=== PATIENT | male | born 1950 | race Caucasian/White ===

== ENCOUNTER → 2024-04-20 06:26 | Day surgery (SDC) | payer OTHER, MEDICARE, SELFPAY | LOC: GI 06:26 | PROVIDERS: ATTENDING PHYSICIAN Internal Medicine Gastroenterology | DX: Z12.11 Encounter for screening for malignant neoplasm of colon (principal); K57.30 Diverticulosis of large intestine without perforation or abscess without bleeding; K64.8 Other hemorrhoids | CPT/HCPCS: G0121 ==

== ENCOUNTER 2025-06-13 11:13 | Inpatient (IN) | payer OTHER, MEDICARE, SELFPAY ==
[2025-06-13] VITALS (68 sets, daily range): BP systolic 93–139; BP diastolic 51–91; BMI 25.2
--- NOTE | 2025-06-13 09:58 | CON.NEURO ---
Addendum entered and electronically signed by Ramírez Veloz MD 06/13/25 11:38:
Studies reviewed.
I have personally examined the patient. I reviewed and agree with the BREEDING MANAGER's Note.
My addenda:
Awake, alert, interactive. No acute distress.
Speech intact.
Follows 2-step requests w/o difficulty. No tremor.
Extra-ocular movements grossly intact.
Facial movements full and symmetric. Hearing intact to normal conversational volume.
Normal UE movements bilaterally.
Neck: full ROM.
Chest: no dyspnea
Heart: no JVD
Ext: (-) Clubbing, (-) Cyanosis, (-) Edema
IMPRESSIONS/RECOMMENDATIONS:
Abrupt onset of left upper extremity weakness and left sided facial weakness in addition to dysarthria are most likely secondary to acute ischemic right frontal stroke, this similar in location to the prior area of stroke
Provide tenecteplase
Goal of normotension after 24 hours, permissive hypertension prior to same
Goal of normoglycemia
Appreciate reevaluation by cardiology to determine if the patient's known patent foramen ovale should at this time be closed based on a likely second embolic event
Will check for aspirin efficacy by means of P2Y12 evaluation
D/W patient / nursing
All questions answered.
Total Critical Care Time= 40 minutes.
The neurological system is affected and the action required by me to prevent further deterioration or potential was control over the item listed first in the Impressions and Recommendations section of this note.
I was present and personally examined the patient. I discussed patient care with other professional health care providers.
Will continue to follow patient.
Original Note:
Documented by User: Pat Graves NP 06/13/25 11:15
Neuro Assessment/Plan
Assessment
Patient is a 74 yo male with a history of CVA (10/2023), HLD, PFO and hyperhomocysteinemia presenting to [facility] on 06/13/2025 with dysarthria, left facial weakness and left upper extremity weakness, numbness and tingling.
Head and neck CTA 10/21/2023: No significant vascular occlusion, aneurysm or dissection.
Brain MRI 10/21/2023: There is a small subtle focus of abnormal restricted diffusion involving the medial insular cortex, compatible with a small focus of acute to subacute infarction. Of note, although not an angiography examination, it appears
that there has likely been recanalization of the insular branch of the right MCA since earlier CT angiography of the head and neck.
TTE 10/21/2023:
Normal left ventricular size, wall thickness and systolic function.
LV ejection fraction is 55-60% by Donahue's method of discs.
Mildly enlarged right ventricular size.
Normal right ventricular systolic function.
Mildly dilated right atrium.
Mild mitral regurgitation.
Trace aortic regurgitation.
Trace tricuspid regurgitation.
Trace pulmonic regurgitation.
Normal pericardium without effusion.
Suboptimal subcostal view.
The IVC is mildly dilated.
No intracardiac thrombus noted
LESLIE 12/05/2023: PFO with right to left and left to right shunting.�
Linq monitor in November 2023.
Head and neck CTA 06/13/2025: Diminished branch vessels of the right middle cerebral artery in the region of the lateral right frontal lobe, which corresponds to the region of elevated Tmax on CT perfusion examination.
No significant calcification or narrowing involving the common carotid arteries, carotid bulbs, or proximal internal carotid arteries bilaterally. No significant narrowing involving the cervical or intracranial portions of the internal carotid
arteries.
No significant narrowing involving the M1 portions of the middle cerebral arteries bilaterally. Normal appearance of the anterior cerebral arteries.
No significant narrowing of the vertebral or basilar arteries. No significant narrowing of the posterior cerebral arteries.
Brain CT:
CBF <30% Volume: 0 mL (estimate of ischemic core)
Tmax >6 second Volume: 8 cc (critically hypoperfused tissue)
CBF/Tmax Mismatch Volume: 8 cc (ischemic penumbra)
CBF/Tmax Mismatch Ratio: Infinite
Hypoperfusion Index (Tmax >10s/Tmax >6s): 0 (predicts rate of collateral flow, infarct growth, and clinical outcome)
CBF <20% Volume: 0 cc (for patient's who arrived to the hospital within 60 minutes of symptom onset)
Perfusion findings suggest penumbra of involving the lateral right frontal lobe, and possibly the anterior and superior aspect of the right temporal lobe. By CT brain perfusion, there are no findings to suggest core infarction.
Labs: Cholesterol 101, LDL 44, Hgb A1C pending, Vitamin B12 pending
Brain MRI: pending
Plan
Abrupt change in speech, left facial strength and left upper extremity numbness/tingling and weakness due to onset of acute ischemic stroke
Most likely due to known PFO
Recommendations:
� administer IV Tenecteplase (TNK) per protocol urgently while keeping patient's blood pressure to a goal of systolic less than 185 and diastolic less than 110 mmHg during infusion of TNK
� place the patient in medical ICU
� goal blood pressure over the next 24 hours would be less than 180/105 mmHg
� check MRI of the brain within 22-32 hours of TNK without contrast for localization of the stroke
� check �CTA head and neck
� hold all antiplatelets, OAC meds, DOAC meds, heparinoids for next 24 hours
� check lipid panel and hemoglobin A1c
� hyperhomocysteinemia level 15.8, check vitamin B12 level
� continue atorvastatin when patient is able to take PO
� goal blood glucose levels for patient would be less than 180 mg/dL
� Speech, PT, OT evaluations needed
� Physiatry consultation warranted
� DVT prophylaxis with sequential compression devices over next 24 hours, can be started on Enoxaparin subcutaneous for DVT prophylaxis beginning 24 hours after TNK provision.
� medical educational materials will be provided
� cardiology consult due to known PFO on LESLIE
All questions encouraged and answered, plan of care discussed with Dr. Veloz, Dr. Palma, nurse and patient
Consultation
Order
Date of Consultation: 06/13/25
Requesting Provider: hospitalist
Reason for Consult: left facial droop, dysarthria and left upper extremity numbness/tingling and weakness
Subjective/Objective
Subjective Data
Date of Service: June 13, 2025
Taken from neurology outpatient note by Dr. Veloz on 04/28/2024,
'Since last visit:
>> 04/2024
completed blood work
cancer screening OK
Previous testing: blood work
CT head was negative.
CTA of the head and neck showed a focal cutoff of a distal right M2 insular branch with collaterals.
MRI brain showed a small subtle focus of an abnormal restricted diffusion in the medial insular cortex compatible with a small focus of acute to subacute infarct.
Echocardiogram -did not show PFO or CSE
LESLIE showed bidirectional PFO, did have aneurysmal changes
Linq implantable monitor
Prior medication(s): ASA, Clopidogrel, Atorvastatin
Side-effects with medications: none
Previous treatment(s): therapy evaluation, cardiac monitoring
Duration: since 10/2023
Duration of symptom: unchanged since onset
Etiology: unclear currently; presumed to be thromboembolic
Associated symptom(s): none
Improving factors: patient unaware of any
Worsening factors: patient unaware of any
Unchanged by: patient unaware of any
Severity: significant
~~~~
This is a 73-year-old male with no significant medical history that presented to the ER with speech changes and right sided facial droop on 10/21/2023. His reported when he woke up in the morning he was talking normally followed by immediate
garbled speech and was not responding correctly to her questions. She then noticed a right facial droop and his balance being off. He did fall. then brought him to the ER. Entire episode lasted approximately 10 minutes.
He was started on aspirin and Plavix for 21 days which he completed and now is on ASA daily. He was also started on a statin, LDL was 103.
He did follow-up with cardiology for 2-week cardiac monitoring which did not show any atrial fibrillation.
Since his discharge he has not had any new stroke symptoms. He has been feeling well. He is back working
>> 02/2024
had Linq implantable device placed
underwent LESLIE which showed PFO.'
Patient presenting to [facility] on 06/13/2025 as prehospital stroke alert. According to patient he went to bed at midnight woke up at 8am and noted left hand numbness/tingling and weakness. He also mentions that when he woke up to go to the bathroom he
fell down and denies LOC or head strike. He did take his low dose aspirin this morning. He has a Linq recorder in place and per patient no arrhythmias detected. He called his at 9:20 who noted dysarthria which prompted an ER evaluation. Arrived
to hospital at 10 am and taken to head CT. On exam noted to have left arm drift and ataxia, left facial droop and dysarthria. NIHSS 5. Head CT no acute abnormality. BP 136/80 HR 81, pulse ox 97% on room air. Brain perfusion scan concern for stroke.
Will be given TNK and admitted to ICU.
Objective Data
Patient Allergies
No Known Allergies Allergy (Verified 12/05/23 07:45)
LDL Level: <70, continue statin
CVA Assessment
Onset of Stroke Symptoms
Onset of symptoms known: No
Date of onset of symptoms: 06/13/25
Time of onset of symptoms: 08:00
Time pt last seen normal is known: Yes
Date last time pt seen normal: 06/13/25
Time last time pt seen normal: 00:00
NIH Stroke Score
Level of Consciousness: 0 - Alert
LOC Questions: 0-Answers both correctly
LOC Commands: 0-Performs both correctly
Best Horizontal Gaze: 0-Normal
Visual Beasley: 0=Normal, no visual loss
Facial Palsy: 2=Partial paralysis
Motor - Right Arm: 0=No drift 10 seconds
Motor - Left Arm: 1=Drift < 10 seconds
Motor - Right Le-No drift 5 seconds
Motor - Left Le-No drift 5 seconds
Limb Ataxia: 1-Present in one limb
Sensation: 0-Normal
Best Language: 0-No aphasia
Dysarthria: 1-Mild slurring
Extinction and Inattention: 0-No abnormality
NIH Total Score:: 5
Tenecteplase Contraindications
Inclusion and Exclusion criteria reviewed: Yes
Modified [place] Score (MRS)
-
Modified [place] Scale (mRS): Slight disability. Able to look after own affairs.
Score: 2
Physical Exam
-
General: No Apparent Distress, Comfortable and Appears Stated Age
HEENT: Normocephalic, Atraumatic and Anicteric
Neck: Full Range of Motion
Respiratory: No Dyspnea
Cardiac: No JVD
GI: Non-distended
Skin: Unremarkable
Extremities: No Clubbing, No Cyanosis and No Edema
Psych: Unremarkable
Extended Neurological Exam
Mood & Affect: Mood Unremarkable
Attention Span & Concentration: Awake, Alert, Interactive and No Difficulty with 2 Step Request
Memory: Unremarkable
Tremor: Hand Tremor Absent and Head Tremor Absent
Speech: Dysarthric
Cranial Nerve II: Left Eye: Visual Beasley Intact
Cranial Nerve II: Right Eye: Visual Beasley Intact
Cranial Nerves III, IV, : Extraocular Movement: Extraocular Movement Full in all Directions
Cranial Nerve VII: Facial Symmetry: Reduced (left)
Cranial Nerve VIII: Hearing: Unremarkable Hearing to Normal Conversational Volume
Muscle Strength, Overall: Reduced on Left (LUE)
Pronator Drift: Drift in Left Upper Extremity
Coordination: Other (LUE ataxia)
Data Reviewed
-
CT-A: Report Reviewed and Image Reviewed
CT-Perfusion: Report Reviewed and Image Reviewed
CT Head: Report Reviewed and Image Reviewed
MRI Head: Ordered
Echocardiogram: Report Reviewed
Labs: Report Reviewed
Lipid Profile: Ordered
HgbA1C: Ordered
Reviewed with: Physician and Patient
Old Records: Summarized
Medications
-
Home Medications
�Medication �Instructions �Recorded
aspirin 81 mg chewable tablet 81 mg PO DAILY #0 tabs 10/22/23
(Children's Aspirin)
atorvastatin 40 mg tablet 40 mg PO QPM #30 tabs 10/22/23

Documented by User: Ramírez Veloz MD 06/13/25 11:26
CVA Assessment
NIH Stroke Score
NIH Total Score:: 5
Modified [place] Score (MRS)
-
Score: 2
[2025-06-13] MEDS: TNKASE 4.2 MG IV (10:27)
[2025-06-13 10:29] LABS: Glucose - Point of Care 109 mg/dl (70-99)
--- NOTE | 2025-06-13 10:54 | HPS.HSE ---
Addendum entered and electronically signed by Michael Bentley MD 06/13/25 16:36:
ALSO: the blood pressure must be maintained at or below 180/105 mmHg for 24 hours following thrombolytic (Tenecteplase) treatment.
Original Note:
Family Physician
-
Family Physician: Mohit Conner DO
Chief Complaint
-
Numbness in left upper extremity
History of Present Illness
74-year-old male with previous history of CVA in 2022, hyperlipidemia, Linq monitor implant, and PFO, presented to the [facility] ER with slurred speech, left facial weakness and left upper extremity numbness and tingling. He noticed these symptoms after
waking up this morning. NIH score was 5, CT head initially negative. He was given TNK in the emergency room. He denied any other symptoms or complaints.
Medical History
Past Medical History
Past Medical History: Reports Other (As per HPI above)
Past Surgical History: Reports Orthopedic (R shoulder ORIF)
Social History
Tobacco: Non-smoker
Alcohol: None
Drug: None
Family History
Family History: Not pertinent
Allergies / Home Medications
Allergies reflects when Allergies were last updated in [facility].
Home Medications with original date entered in [facility]
Allergy/Medication List:
Allergies
Allergy/AdvReac Type Severity Reaction Status Date / Time
No Known Allergies Allergy Verified 12/05/23 07:45
Home Medications
aspirin 81 mg chewable tablet 81 mg PO DAILY Blood Clot Prevention/Tx 06/13/25
atorvastatin 40 mg tablet 40 mg PO QPM High Cholesterol 06/13/25
cyanocobalamin (vitamin B-12) 1,000 mcg tablet (Vitamin B-12) 1,000 mcg PO DAILY Supplement 06/13/25
Review of Systems
-
A 12 point ROS was completed and negative except as noted: Yes
Physical Exam
Vital Signs
Vital Signs
Temp Pulse Resp BP Pulse Ox
97.9 F 75 16 136/80 95
06/13/25 10:43 06/13/25 10:32 06/13/25 10:32 06/13/25 10:32 06/13/25 10:02
Physical Exam
General: No Apparent Distress
HEENT: NormoCephalic, Moist mucous membranes and Atraumatic
Respiratory: Clear
Cardiac: S1/S2 and Regular Rhythm
GI: Soft, Non Tender and Normal Bowel Sounds
Musculoskeletal: No Cyanosis and No Edema
Skin: Warm and Dry
Neuro: Awake, Alert and Other (Slight left facial droop. Otherwise, sensation grossly intact bilaterally except for LUE digits numbness/decreased sensation. Strength 5/5 bilaterally in the upper and lower extremities.)
Psych: Calm and Intact Judgment/Insight
Impression/Plan
-
Assessment/Plan
Concern for Acute Stroke
History of CVA
-Received TNK at 10:27 AM on 06/13/25
-Follow post-TNK administration protocol -- NO anticoagulant or antiplatelet agents within the first 24 hours of thrombolytic therapy
-Initial HCT negative but H&N noting diminished R MCA
-Repeat neuroimaging in the morning on 06/14/25 with MRI Brain
-Echo
-Cardiology will evaluate for PFO closure
-Neurochecks
Previous history of CVA in 2022
Linq monitor implant
-Per cardiology, Linq monitor was negative for arrhythmia/Afib
History of PFO
Hyperlipidemia
-Continue statin
DVT Prophylaxis: SCDs
Code Status: Full Code
Stroke with TNK administration is a high risk encounter.
[2025-06-13 11:00] LABS: Hematocrit 35.0 % (39.0-52.0); Hemoglobin 12.0 g/dL (13.0-18.0); Mean Corp Hgb Conc. 34.3 g/dL (33.0-37.0); Mean Corpuscular Volume 99.7 fL (80.0-94.0); Nucleated Red Blood Cells % 0 % (-); Platelet Count 186 10^3/uL (130-400); Red Cell Dist. Width 12.9 % (11.5-14.5)
[2025-06-13 11:08] LABS: Blood Urea Nitrogen 15 mg/dl (9-20); Calcium 8.7 mg/dl (8.4-10.2); Carbon Dioxide 25 mmol/L (22-30); Chloride 107 mmol/L (98-107); Glucose 107 mg/dl (70-99); HDL Cholesterol 47 mg/dl; LDL Cholesterol, Calculated 44 mg/dl; Potassium 5.1 mmol/L (3.5-5.1); Sodium 135 mmol/L (135-145); Very Low Density Lipoprotein 10 mg/dl (0-30); eGFR > 60.00
--- NOTE | 2025-06-13 11:23 | CON.INTV ---
Consultation
Consultation Request
Date/Time Consultation Requested: 06/13/25
Date/Time Consultation Performed: 06/13/25
Performing Provider: Mikaela
Reason for Consultation: CVA
Medical History
-
History of Present Illness:
Patient is a 74-year-old male with previous history of CVA in 2022, hyperlipidemia, PFO presenting to ER with dysarthria, left facial weakness and left upper extremity numbness and tingling. Onset was upon awakening this morning, had
noticed garbled speech, he was immediately brought to the ER by his . NIH score was 5, CT head initially negative. He is given TNK and admitted to ICU for post thrombolytic therapy.
Past Medical History
Past Medical History: Other (see list below)
Social History
Tobacco: Non-smoker
Alcohol: None
Drug: None
Family History
Family History: Reviewed & Not Pertinent
Allergies / Home Medications
Allergies
Allergy/AdvReac Type Severity Reaction Status Date / Time
No Known Allergies Allergy Verified 12/05/23 07:45
Home Medications
�Medication �Instructions �Recorded �Confirmed �Last Taken �Type
aspirin 81 mg chewable tablet 81 mg PO DAILY Blood Clot 06/13/25 06/13/25 06/13/25 History
Prevention/Tx
atorvastatin 40 mg tablet 40 mg PO QPM High Cholesterol 06/13/25 06/13/25 06/12/25 History
cyanocobalamin (vitamin B-12) 1,000 mcg PO DAILY Supplement 06/13/25 06/13/25 06/12/25 History
1,000 mcg tablet (Vitamin B-12)
Review of Systems
-
History Source: Patient
All other systems: Negative unless noted
Vitals / Labs / Diagnostic Testing
Vital Signs
Temp Pulse Resp BP Pulse Ox
97.9 F 69 15 130/64 95
06/13/25 10:43 06/13/25 11:02 06/13/25 11:02 06/13/25 11:02 06/13/25 10:02
Lab Data
06/13/25 10:36
06/13/25 10:36
Diagnostic Testing:
Physical Exam
-
HEENT: Normocephalic, Anicteric and Moist Mucous Membranes
Cardiovascular: S1/S2 and Regular Rhythm
Respiratory: Clear and Non-Labored Respirations
GI: Soft, Non Distended and Non Tender
Neurology: Awake, Alert, No Motor Deficits and Other (slight facial droop)
Skin: Warm, Dry and Good Color
General: Comfortable and Other (NAD)
Assessment
-
Patient is a 74-year-old male with previous history of CVA in 2022, hyperlipidemia, PFO presenting to ER with dysarthria, left facial weakness and left upper extremity numbness and tingling. Onset was upon awakening this morning, had
noticed garbled speech, he was immediately brought to the ER by his . NIH score was 5, CT head initially negative. He is given TNK and admitted to ICU for post thrombolytic therapy.
Acute CVA status post TNK 06/05/2025
Dysarthria
Left upper extremity numbness and paresthesias
Conditions present prior to admission
Prior CVA 2022
PFO status post loop recorder
Paroxysmal atrial fibrillation
CKD stage III
Mixed hyperlipidemia
Hyperhomocysteinemia
Thumb and arm fracture, pins placed
Gynecomastia
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
R shoulder dislocation with repair
Left wrist fracture
Right first phalanx fracture with malunion
Plan
s/p TNK for CVA -- this is second CVA
Observe overnight following administration, careful watch for signs of bleeding
Follow CBC, neurovascular checks
Repeat MRI in AM
Initial HCT negative but H&N noting diminished R MCA
Prior cardiac history includes PFO being followed by cards
ECHO in past stable, loop recorder in place
PAF history, not on OAC
Cards evaluation for PFO closure
No prior h/o lung disease, stable on RA
Aspiration precautions
CXR reviewed in past-normal, no new imaging
Restart diet per protocol
Speech eval for diet
GI ppx if indicated
Creat at baseline, follow UO
No signs/symptoms suspicious for infectious etiology at this time.��
Will observe off antibiotics for now.
PT/OT
DVT ppx held, SCDs
Diagnostic Data
Chest X-Ray: 01/29/22- No radiographic evidence of acute cardiopulmonary abnormality.
CT Scan: H&N 06/13/25- Diminished branch vessels of the right middle cerebral artery in the region of the lateral right frontal lobe, which corresponds to the region of elevated Tmax on CT perfusion examination. No significant calcification or
narrowing involving the common carotid arteries, carotid bulbs, or proximal internal carotid arteries bilaterally. No significant narrowing involving the cervical or intracranial portions of the internal carotid arteries.
No significant narrowing involving the M1 portions of the middle cerebral arteries bilaterally. Normal appearance of the anterior cerebral arteries. No significant narrowing of the vertebral or basilar arteries. No significant narrowing of the
posterior cerebral arteries. Percent stenosis is calculated using NASCET criteria.
Echo: 10/21/23- Normal left ventricular size, wall thickness and systolic function. LV ejection fraction is 55-60% by Donahue's method of discs. Mildly enlarged right ventricular size. Normal right ventricular systolic function. Mildly dilated right
atrium. Mild mitral regurgitation. Trace aortic regurgitation. Trace tricuspid regurgitation. Trace pulmonic regurgitation. Normal pericardium without effusion. Suboptimal subcostal view. The IVC is mildly dilated. No intracardiac thrombus noted
PFT's:
Reports and relevant images were personally reviewed.
Critical Care time 50 mins -- The patient is admitted for acute critical illness for the treatment of vital organ failure and/or prevention of further life-threatening conditions. Total care includes time spent in review of history, physical exam,
medications, hemodynamic/ventilator parameters, laboratory data, imaging and discussion with house staff, pharmacy, respiratory therapy, conference coordinator, and nursing.
--- NOTE | 2025-06-13 11:25 | ED.CVA ---
History of Present Illness
General
Chief Complaint: CVA/TIA Symptoms
Source: patient
Exam Limitations: none
Time Seen by Provider: 06/13/25 09:59
Onset of Stroke Symptoms
Onset of symptoms known: Yes
Date of onset of symptoms: 06/13/25
Time of onset of symptoms: 08:00
History of Present Illness
History of Present Illness:
74-year-old male acute onset slurred speech left facial droop left arm weakness. May have started upon awakening but more than likely started just after awakening. Possibly around 8 AM. Symptoms have been stable throughout the morning. No
headache. Previous history of CVA. Takes an aspirin. No other anticoagulation.
Past History
Past History
ED Past Medical History: CVA (right MCA ) and Other (PFO)
ED Past Surgical History: Orthopedic (R shoulder ORIF)
Social History
Tobacco: Non-smoker
Alcohol: None
Personal:
Living: with family
Family History
Family History: Other (reviewed and non-contributory)
Review of Systems
Review of Systems
All Other Systems: Not applicable
Constitutional: Denies fever
Respiratory: Reports no symptoms
Cardiac: Reports no symptoms
Phy Exam
Physical Exam
Physical Exam:
GENERAL: Alert and oriented in no apparent distress
EYE: Orbits normal.
CARDIAC: Regular rate and rhythm
Lungs: No respiratory distress from sorry
NEUROLOGICAL: Alert and oriented , mild left facial droop. Minimal left arm drift and poor [id number] on the left. Slight slurred speech. Eye confrontation normal. Right side normal. Legs normal. Light touch intact.
SKIN: Warm and dry, no rash or lesion, no discoloration, skin intact.
MUSCULOSKELETAL: No edema,no deformity.Good color
PSYCH: Normal and appropriate interaction.
Scores
NIH Stroke Score
Level of Consciousness: 0 - Alert
LOC Questions: 0-Answers both correctly
LOC Commands: 0-Performs both correctly
Best Horizontal Gaze: 0-Normal
Visual Beasley: 0=Normal, no visual loss
Facial Palsy: 2=Partial paralysis
Motor - Right Arm: 0=No drift 10 seconds
Motor - Left Arm: 1=Drift < 10 seconds
Motor - Right Le-No drift 5 seconds
Motor - Left Le-No drift 5 seconds
Limb Ataxia: 1-Present in one limb
Sensation: 0-Normal
Best Language: 0-No aphasia
Dysarthria: 1-Mild slurring
Extinction and Inattention: 0-No abnormality
NIH Total Score:: 5
Course
Orders/Labs/Results
Orders:
Orders
06/13/25 09:59
CT HEAD STROKE ALERT W/o Cont Urgent
Comment:
Reason For Exam: r/o CVA
CT HEAD/NECK ANG STROKE ALERT Urgent
Comment:
Reason For Exam: Left-sided weakness/slurred speech
Cardiac Monitoring- Treatment ONCE
IV Insert/Care/Rem.- Treatment PRN
Pulse Ox/cont/shift [RESP] Stat
Quantity: 1
06/13/25 10:00
Electrocardiogram (*1) Stat
Reason for Study: Other
Other Reason for Exam: neuro symptoms
CT Brain Perfusion Urgent
Comment:
Reason For Exam: Left-sided weakness /slurred speech
EKG- Treatment ONCE
06/13/25 10:19
Tenecteplase [Tnkase] 21 mg Syringe [Syringe Non-Pump] 0 ml IV NOW
Provider explained risk/benefits to patient &/or caregiver?: Yes
Blood pressure: 139/84
06/13/25 10:27
Add On- LAB Routine
Tests Added?: lipid panel, hgb A1C
06/13/25 10:36
Basic Metabolic Panel Urgent
Cardiovascular Evaluation Urgent
Comment: ADD
Complete Blood Count/With Diff Urgent
Glycohemoglobin (HgbA1c) Urgent
Magnesium Urgent
Comment: ADD
Phosphorus Urgent
Comment: ADD
Vitamin B12 Urgent
Comment: ADD ON
06/13/25 10:38
Add On- LAB Routine
Tests Added?: B12
06/13/25 10:45
Electrocardiogram (*1) Routine
Reason for Study: TIA/Stroke
Code Status As Directed
Resuscitation Status: Full Code
Case Management Consult Once
Case Management Consult: Discharge Planning
DIETARY IP CONSULT Routine
Reason for Consult: stroke/TIA
Wirer Passenger Car Consult Routine
Consulting Provider: Kell Al
Was physician already notified: Yes
NEUROLOGY CONSULT Urgent
Consulting Provider: Ramírez Veloz
Was physician already notified: Yes
Technical Applications Scientist Urgent
MR Brain Without Contrast Routine
Comment: complete 24 hrs post tenecteplase administration
Reason For Exam: possible stroke, status post tenecteplase
Recent pill cam endoscopy?: No
Acetaminophen [Tylenol] 650 mg PO Q4HPRN PRN
Hemetest Stools As Directed
Comment: hemoccult all stools if patient received tenecteplase
NIH Stroke Scale As Directed
Directions: Other
Comment: NIH stroke Scale to be completed prior to thrombolytic administration, then every 1 hour for 2
hours, then every shift and with change in condition and/or mental status.
Neurological Checks As Directed
Frequency: Per unit guidelines
Additional Instructions:: after start of thrombolytic therapy:
q15min x 2 hrs, q30min x 6 hrs, q1h x 16 hrs, q4h x 24 hrs, then every shift and
with any changes.
Notify MD As Directed
Notify physician if: - Any deterioration, change in neurological status, development of severe headache,
nausea and vomiting, or with any signs of bleeding. (see guidelines for suspected
intracerebral hemorrhage).
- If intracranial hemorrhage is suspected or confirmed by imaging, anticipate need for
osmotic diuretic to maintain euvolemia.
Notify MD As Directed
Notify physician if: Glucose less than 70 or greater than 180.
Anticipate corrective insulin orders.
Notify MD As Directed
Notify physician if: unable to obtain MRI of head within 22-32 hours of tenecteplase administration
- contact Neurology for order for CT of head without contrast
Patient Education As Directed
Type: Stroke education packet
Comment: provide to patient and family
Pneumatic Compression Sleeves As Directed
Type: Knee high
Precautions As Directed
Type of Precautions: Bleeding
Comment: post Bleeding Precaution sign at bedside (if patient received tenecteplase)
Swallow Screening CVA/TIA ONLY As Directed
Comment: NPO until swallow screening completed
If patient FAILS swallow screening:: NPO and Speech consult and aspiration precautions
If patient PASSES swallow screening, diet:: Cholesterol Lowering
Above diet order entered?: Yes- passed screening
Thrombolytic Precautions As Directed
Thrombolytic Precautions:: [place] bleeding precautions. Minimize invasive procedures and venipunctures,
avoid IM injections and over-handling patient, and check all puncture sites for
bleeding. Assess the patient and notify provider for signs and symptoms of
internal or serious bleeding, such as changes in vital signs or evidence of blood
in the urine or stool.
Additional instructions: Hemocult all stools.
Apply direct pressure or pressure dressing to any compressible puncture sites.
No ABG sampling or [place] insertion after Tenecteplase administration for 24 hours,
unless directed by the Neurologist/Attending.
Vital Signs As Directed
Frequency: q15m
Call for:: BP greater than 180/105 mmHg or less than 100/60 mmHg
Additional Instructions:: after start of thrombolytic therapy:
q15min x 2 hrs, q30min x 6 hrs, q1h x 16 hrs, q4h x 24 hrs, then every shift and
with any changes.
CR Chest - 2 Views Urgent
Comment:
Reason For Exam: stroke/TIA
Ot Eval And Treat Routine
Physiatry Consult Routine
Consulting Provider: Thanh Torres
Was physician already notified: Yes
Reason for consult: stroke/TIA
Pt Eval And Treat Routine
Activity Level: As Tolerated
Speech Therapy Eval & Treat Routine
DX Deep Vein Thrombosis Video Routine
06/13/25 10:49
Admit Patient As Directed
Co-Sign Provider:
Level of Care: Inpatient admission
Assign to:: ICU
Physician / Group: Dr. Michael Bentley/Hospitalists
Diagnosis: Stroke s/p TNK
Reason for Hospitalization: Stroke s/p TNK
Expected length of stay greater than two midnights?: Yes
ELOS- Estimated Length of Stay in days: 3
I certify the patient meets the requirements for IP care: Yes
06/13/25 10:50
VerifyNow Aspirin Routine
Pt on daily regimen OR been given initial dose of aspirin?: Yes
06/14/25 06:00
Basic Metabolic Panel IN AM
Cardiovascular Evaluation IN AM
Complete Blood Count/No Diff IN AM
PTT IN AM
Prothrombin Time IN AM
Abnormal Lab Results
06/13/25 06/13/25
10:25 10:36
RBC 3.51 L 10^6/uL
(4.70-6.10)
Hgb 12.0 L g/dL
(13.0-18.0)
Hct 35.0 L %
(39.0-52.0)
MCV 99.7 H fL
(80.0-94.0)
MCH 34.2 H pg
(27.0-31.0)
Lymphocytes % 20.3 L %
(20.5-51.1)
Glucose 107 H mg/dl
(70-99)
Hemoglobin A1c 5.9 H %
(4.0-5.6)
Vitamin B12 964 H pg/ml
(239-931)
POC Glucose 109 H mg/dl
(70-99)
06/13/25 10:36
06/13/25 10:36
Vital Signs
Initial and Last Documented VS:
Initial Vital Signs
Pulse Resp BP Pulse Ox
82 16 139/84 95
06/13/25 10:02 06/13/25 10:02 06/13/25 10:02 06/13/25 10:02
Last Documented Vital Signs
Temp Pulse Resp BP Pulse Ox
97.8 F 61 19 125/69 95
06/13/25 11:39 06/13/25 12:32 06/13/25 12:32 06/13/25 12:32 06/13/25 12:30
MDM/Problems Addressed
Differential Diagnosis Includes:
Given the ongoing penumbra moderate symptoms patient was recommended thrombolytics by neurology. I agree. Risk-benefit explained to the patient into the .
*Radiology
Radiology exam reviewed: radiology read reviewed (Penumbra right frontal lobe. No M1 clot.)
*Pulse Oximetry
SaO2: 95
Oxygen Mode of Delivery: Room air
Patient hypoxic: no
*Critical Care Note
Total Time (30-74mins, 75-104mins- exclusive of procedures): 35
ED Attending Note
-
Portions of this chart may have been created with voice recognition software.� Occasional wrong word or��sound alike� substitutions may have occurred due to the inherent limitations of voice recognition software.
Discharge Plan
Departure
Patient Disposition: Admit
Date of Disposition: 06/13/25
Time of Disposition: 11:01
Presentation/result/management discussed w/ accepting MD/DO: Neurology
Discharge Problem:
Acute CVA
Interventions
Interventions:
*Risk Screen - Suicide Last Done: 06/13/25 10:08
*Neglect/Abuse Screening Last Done: 06/13/25 10:08
*ED- Fall Risk Assessment Last Done: 06/13/25 10:08
*ED COVID-19 Vaccine History Last Done: 06/13/25 10:58
*Nursing Disposition Last Done: 06/13/25 11:05
ED- Pulmonary Assessment Last Done: 06/13/25 10:07
ED- Neurological Assessment Last Done: 06/13/25 10:12
ED- Cardiac Assessment Last Done: 06/13/25 10:42
ED Swallowing Screen Last Done: 06/13/25 10:41
Discharge Date and Time
Discharge Date/Time: 06/13/25 11:30
--- NOTE | 2025-06-13 11:30 | PTCARENOTE ---
Received pt from ER into ICU rm [id number] s/p TNK. NIH completed w FLAME CHANNELER; scored for mild L facial droop and L hand 'tingling'- see flow sheet. L facial droop improved and L hand sensation improved; resolved slurred speech and L arm weakness per FLAME CHANNELER
from initial NIH assessment. Pt. AAOx3, forgetful/impulsive @ x's; bed alarm active. Denies pain. SB/SR on monitor. SpO2 96% on RA. +BS, NPO pending swallow screen. Cont b/b. Pt. reported mechanical fall @ home in which he fell on L side;
hematomas noted on L FA and L knee. B/L AC IVs patent, dressings c/d/i. Bedrest maintained post TNK. Pt. intructed on how to report care concerns. @ bedside, updated.
[2025-06-13 11:46] LABS: VerifyNow Aspirin 572 ARU
--- NOTE | 2025-06-13 12:16 | CON.CAR ---
Addendum entered and electronically signed by Marc Rhodes DO 06/13/25 16:07:
I saw and examined the patient.
The Battery Stacker's note was reviewed and I agree with the note.
Comment:
Plan:
-Presented with slurred speech and L sided weakness. Admitted as prehospital stroke alert. CT brain perfusion scan concerning for acute CVA and is s/p tNK.
-He has known hx of PFO and LINQ. Cardiology was consulted for eval for candidacy for PFO closure.
LINQ was negative for arrhythmia/Afib
Discussed that he does not meet current guideline criteria for PFO closure and his ROPE score is on the lower side. Nonetheless, we discussed evaluation by interventional cardiology structural team, Dr De La Torre for eval for potential for PFO closure.
Appt has been made.
Check echo
Cont neuro work up and eval. MRI pending.
Defer consideration for hypercoagulable work up and anticoagulation to neurology.
Cont ASA and Lipitor. LDL at goal.
Discussed with his at bedside.
Original Note:
Consultation
Consultation Request
Date/Time Consultation Requested: 06/13/2025
Date/Time Consultation Performed: 06/13/2025
Requesting Provider: Dr. Veloz
Performing Provider: Magy Little PA-C for Dr. Rhodes
Reason for Consultation: CVA h/o PFO
Medical History
-
History of Present Illness:
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 He presented to [facility] ER for evaluation of slurred speech and L sided weakness. He called his who noted slurred speech. Also had fall while walking to
the bathroom due to L sided weakness. States given concern for CVA he came to ER for evaluation as prehospital CVA alert. Taken urgently to CT scan where brain perfusion scan was concerning for stroke. He was evaluated by neurology and given TNK.
Symptoms improving, but not yet back to baseline. Still has some tingling of L arm/hand. Given known PFO and recurrent CVA, cardiology consulted for evaluation. He notes he has been in his usual state of health recently and has been compliant with
his aspirin and lipitor. No chest pain, palpitations, dizziness, lightheadedness, or LE edema. No recent travel. Linq monitor by recent OP checks has been without arrhythmia, most recently 05/28/2025.
PMH:
CVA 10/2023
s/p Linq monitor 12/05/2023
PFO by LESLIE 11/2023
HLD
Past Medical History
Past Medical History: Other (In HPI)
Past Surgical History: Cardiac (Linq monitor implant 11/2023) and Orthopedic
Social History
Tobacco: Non-Smoker
Alcohol: None
Drug: None
Personal:
Living: With Family
Family History
Family History: Reviewed & Not Pertinent
Allergies / Home Medications
Allergy/AdvReac Type Severity Reaction Status Date / Time
No Known Allergies Allergy Verified 12/05/23 07:45
�Medication �Instructions �Recorded �Confirmed �Type
aspirin 81 mg chewable tablet 81 mg PO DAILY Blood Clot 06/13/25 06/13/25 History
Prevention/Tx
atorvastatin 40 mg tablet 40 mg PO QPM High Cholesterol 06/13/25 06/13/25 History
cyanocobalamin (vitamin B-12) 1,000 mcg PO DAILY Supplement 06/13/25 06/13/25 History
1,000 mcg tablet (Vitamin B-12)
Review of Systems
-
History Source: Patient and Family ( at bedside)
All other systems: Negative unless noted
Physical Exam
Vital Signs
Temp Pulse Resp BP Pulse Ox
97.8 F 62 17 117/73 95
06/13/25 11:39 06/13/25 12:02 06/13/25 12:02 06/13/25 12:02 06/13/25 11:25
Lab Results
06/13/25 10:36
06/13/25 10:36
Physical Exam
General: Well Developed, Well Nourished and No Apparent Distress
HEENT: Normocephalic, Anicteric and Moist Mucous Membranes
Respiratory: Clear and Non Labored Respirations
Cardiac: S1/S2 and Regular Rhythm
Musculoskeletal: No Clubbing, No Cyanosis and No Edema
Skin: Warm and Dry
Neuro: AO x 3
Psych: Calm
Impression / Plan
-
PCP: Dr. Conner
Wool Hanker: Dr. Michael
Impression:
Presented with dysarthria, L sided weakness
Acute CVA s/p TNK 06/13/2025
h/o CVA 10/2023
s/p Linq monitor 12/05/2023
PFO by LESLIE 11/2023
HLD
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
Echo 06/13/2025: Study pending
Plan:
-Presented with slurred speech and L sided weakness. Admitted as prehospital stroke alert. CT brain perfusion scan concerning for acute CVA and is s/p TNK.
-Brain MRI pending. Neurology following.
-Aspirin 81mg daily on hold following TNK.
-BP stable. Not on antihypertensive medications.
-Has been compliant w/ aspirin, lipitor as OP. LDL 44.
-Hgb A1c 5.9%.
-EKG reviewed, SR with no acute changes noted.
-Linq monitor in place. No arrhythmia noted by recent OP check 05/28. Device rep texted to check today to assess for afib given recurrent CVA.
-Check TTE.
-He has known h/o PFO by prior LESLIE 11/2023. As age > 60, data limited in benefit of PFO closure.
-Follow up visit arranged w/ interventional cardiology, Dr. De La Torre, to discuss risk/benefit of PFO closure given age 74 w/ recurrent CVA.
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 He presented to [facility] ER for evaluation of slurred speech and L sided weakness. He called his who noted slurred speech. Also had fall while walking to
the bathroom due to L sided weakness. States given concern for CVA he came to ER for evaluation as prehospital CVA alert. Taken urgently to CT scan where brain perfusion scan was concerning for stroke. He was evaluated by neurology and given TNK.
Symptoms improving, but not yet back to baseline. Still has some tingling of L arm/hand. Given known PFO and recurrent CVA, cardiology consulted for evaluation. He notes he has been in his usual state of health recently and has been compliant with
his aspirin and lipitor. No chest pain, palpitations, dizziness, lightheadedness, or LE edema. No recent travel. Linq monitor by recent OP checks has been without arrhythmia, most recently 05/28/2025.
Data Reviewed
-
EKG: Tracing Personally Visualized and interpreted
CT Scan: Report Reviewed by me
Labs: Labs Reviewed by me
Old Records: Reviewed
[2025-06-13 12:19] LABS: Glucose - Point of Care 105 mg/dl (70-99)
[2025-06-13 12:33] LABS: Vitamin B12 964 pg/ml (239-931)
[2025-06-13 12:39] LABS: Glycohemoglobin (HgbA1c) 5.9 % (4.0-5.6)
[2025-06-13 12:44] LABS: APTT 24.7 Sec (23.4-35.0); INR 0.90; PT 12.6 Sec (11.4-14.6)
--- NOTE | 2025-06-13 12:45 | CM ---
Initial assessment completed with patient and who live in a 2 story house with basement , B/B on 1st floor, 3 steps to enter. 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 There are crutches in the home. No in-home services. No HC-POA.
[facility]P is [facility] and Pharmacy is [facility] [phone] in [place]. Discharge POC: Anticipate home with no needs.
[2025-06-13 13:13] LABS: Hematocrit 38.0 % (39.0-52.0); Hemoglobin 13.1 g/dL (13.0-18.0); Mean Corp Hgb Conc. 34.5 g/dL (33.0-37.0); Mean Corpuscular Volume 100.3 fL (80.0-94.0); Platelet Count 188 10^3/uL (130-400); Red Cell Dist. Width 13.2 % (11.5-14.5)
--- NOTE | 2025-06-13 13:25 | PTCARENOTE ---
Pt.'s L FA hematoma noted to be larger; circled w marker. Insulation Board Coater Operator, Ernesto Al, made aware. Further orders received for CBC, drawn and sent to lab; awaiting results. Ice/compression applied. Call [facility] remains w in reach.
[2025-06-13 13:27] LABS: Magnesium 1.9 mg/dl (1.6-2.3)
--- NOTE | 2025-06-13 14:44 | W.CARD.DEVCH ---
Cardiac Device Check
-
Device: Implanted Loop Recorder (ILR)
Grab Setter: [employer]
The patient's device was interrogated with assistance of the device truck sales representative followed by a complete physician review. The device had normal function. No events. No atrial fibrillation.
--- NOTE | 2025-06-13 15:45 | PTOTSP ---
Speech Therapy Evaluation:
Speech, language, and oropharyngeal swallow appear functional at bedside. Cannot r/o silent aspiration given concern for acute CVA, however CXR showed 'clear lungs,' WBC WNL, pt afebrile, on room air, and passed 3oz swallow screen.
Recommend:
1. Continue regular solids and thin liquids
2. Meds as tolerated
3. Aspiration precautions
4. CHILDREN TEACHER to follow pending results of MRI
--- NOTE | 2025-06-13 16:00 | PTCARENOTE ---
ECHO study completed @ beside this afternoon; results pending. Pt. remains w mild L facial droop but reports continuing improvement in 'tingling' sensation in hand; reports is now 'tingling' is in 4th and 5th fingers. Neuro assessments completed
per orders- see flow sheet. Hgb results w in stable range; no growth in L FA hematoma. remains @ bedside. Bed alarm active; call [place] w in reach.
--- NOTE | 2025-06-13 20:33 | PTCARENOTE ---
Pt received at 19:00, handoff NIH completed. Ox3, NIH = 2, slight L facial droop and decreased sensation to 4th and 5th fingers on L hand. Pt states improvement in sensation, but 'still not 100%'. SR HR 60s-70s, bradys into the 50s when asleep. RA
breath sounds clear t/o . +bowel sounds, no BM. Voids in urinal, clear yellow urine. Brusing noted to L FA and L knee from prior fall--bruises marked and unchanged. Safe environment maintained, call [facility] within reach.
[2025-06-14] VITALS (61 sets, daily range): BP systolic 60–137; BP diastolic 41–95; PULSE 53–73
--- NOTE | 2025-06-14 | PTCARENOTE ---
Pt assessment unchanged. States that he feels the decreased sensation continues to improve in his L 4th and 5th fingers. Safe environment maintained, call [facility] within reach.
[2025-06-14] MEDS: NSS 500 IV (04:21)
[2025-06-14 04:27] LABS: Hematocrit 35.5 % (39.0-52.0); Hemoglobin 12.4 g/dL (13.0-18.0); Mean Corp Hgb Conc. 34.9 g/dL (33.0-37.0); Mean Corpuscular Volume 97.5 fL (80.0-94.0); Platelet Count 148 10^3/uL (130-400); Red Cell Dist. Width 13.1 % (11.5-14.5)
[2025-06-14 04:40] LABS: INR 0.99; PT 13.6 Sec (11.4-14.6)
[2025-06-14 04:41] LABS: APTT 25.0 Sec (23.4-35.0)
--- NOTE | 2025-06-14 04:45 | PTCARENOTE ---
While drawing pts AM labs, pt stated that he was starting to get dizzy and nauseated. BP 60/42, HR in the 40s. GTA made aware, ordered 500ml NSS bolus. NIH completed, remains 2. Pt stated that he had an episode of 'passing out' when getting labs
drawn outpatient in the past. With improvement in BP, dizziness/nausea resolved. BP now 103/63.
[2025-06-14 04:49] LABS: Blood Urea Nitrogen 15 mg/dl (9-20); Calcium 8.9 mg/dl (8.4-10.2); Carbon Dioxide 24 mmol/L (22-30); Chloride 109 mmol/L (98-107); Estimated Creatinine Clearance 70 ml/min; Glucose 98 mg/dl (70-99); HDL Cholesterol 50 mg/dl; LDL Cholesterol, Calculated 55 mg/dl; Magnesium 2.1 mg/dl (1.6-2.3); Potassium 4.9 mmol/L (3.5-5.1); Sodium 136 mmol/L (135-145); Very Low Density Lipoprotein 12 mg/dl (0-30); eGFR > 60.00
[2025-06-14] MEDS: NSS 1000 IV (05:55)
--- NOTE | 2025-06-14 07:07 | W.PN.INTV ---
Today's Communication / Plan
Recommendations
Stable on RA, no new complaints
MRI planning today, neuro following
Follow up cards planning for PFO evaluation, can be done as OP
PT/OT, speech following
Can transfer to floors today, we will sign off upon transfer
Assessment
-
Patient is a 74-year-old male with previous history of CVA in 2022, hyperlipidemia, PFO presenting to ER with dysarthria, left facial weakness and left upper extremity numbness and tingling. Onset was upon awakening this morning, had
noticed garbled speech, he was immediately brought to the ER by his . NIH score was 5, CT head initially negative. He is given TNK and admitted to ICU for post thrombolytic therapy.
Acute CVA status post TNK 06/05/2025
Dysarthria
Left upper extremity numbness and paresthesias
Conditions present prior to admission
Prior CVA 2022
PFO status post loop recorder
Paroxysmal atrial fibrillation
CKD stage III
Mixed hyperlipidemia
Hyperhomocysteinemia
Thumb and arm fracture, pins placed
Gynecomastia
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
R shoulder dislocation with repair
Left wrist fracture
Right first phalanx fracture with malunion
Plan
s/p TNK for CVA -- this is second CVA
Observe overnight following administration, careful watch for signs of bleeding
Follow CBC, neurovascular checks
Repeat MRI in AM, scheduled for 11AM
Initial HCT negative but H&N noting diminished R MCA
Prior cardiac history includes PFO being followed by cards
ECHO in past stable, loop recorder in place
PAF history, not on OAC
Cards evaluation for PFO closure
This can be further discussion as OP
No prior h/o lung disease, stable on RA
Aspiration precautions
CXR reviewed in past-normal, no new imaging
Denies snoring, does not feel he has TANGELA complaints
Restart diet per protocol--tolerating
Speech eval for diet
GI ppx if indicated
Creat at baseline, follow UO
No signs/symptoms suspicious for infectious etiology at this time.��
Will observe off antibiotics for now.
PT/OT
DVT ppx held, SCDs
Diagnostic Data
Chest X-Ray: 01/29/22- No radiographic evidence of acute cardiopulmonary abnormality.
CT Scan: H&N 06/13/25- Diminished branch vessels of the right middle cerebral artery in the region of the lateral right frontal lobe, which corresponds to the region of elevated Tmax on CT perfusion examination. No significant calcification or
narrowing involving the common carotid arteries, carotid bulbs, or proximal internal carotid arteries bilaterally. No significant narrowing involving the cervical or intracranial portions of the internal carotid arteries.
No significant narrowing involving the M1 portions of the middle cerebral arteries bilaterally. Normal appearance of the anterior cerebral arteries. No significant narrowing of the vertebral or basilar arteries. No significant narrowing of the
posterior cerebral arteries. Percent stenosis is calculated using NASCET criteria.
Echo: 10/21/23- Normal left ventricular size, wall thickness and systolic function. LV ejection fraction is 55-60% by Donahue's method of discs. Mildly enlarged right ventricular size. Normal right ventricular systolic function. Mildly dilated right
atrium. Mild mitral regurgitation. Trace aortic regurgitation. Trace tricuspid regurgitation. Trace pulmonic regurgitation. Normal pericardium without effusion. Suboptimal subcostal view. The IVC is mildly dilated. No intracardiac thrombus noted
PFT's:
Reports and relevant images were personally reviewed.
Critical Care time 35 mins -- The patient is admitted for acute critical illness for the treatment of vital organ failure and/or prevention of further life-threatening conditions. Total care includes time spent in review of history, physical exam,
medications, hemodynamic/ventilator parameters, laboratory data, imaging and discussion with house staff, pharmacy, respiratory therapy, music department chair, and nursing.
Subjective Dataa
Subjective Data
Date of Service:
Date of Service: June 14, 2025
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
Subjective:
Doing well, no new complaints
Stable on RA
Objective Data
Data Reviewed
Vital Signs / I&O / Oxygen:
Vital Signs
Temp Pulse Resp BP Pulse Ox
97.9 F 60 18 118/66 94
06/14/25 03:18 06/14/25 06:32 06/14/25 06:32 06/14/25 06:32 06/14/25 06:30
Intake and Output
06/13/25 06/14/25 06/15/25
06:59 06:59 06:59
Intake Total 860 / 860
Output Total 1900 / 1900
Balance -1040 / -1040
SaO2 94
Physical Exam
General: Comfortable, Good Appetite and Other (NAD)
HEENT: Normocephalic, Anicteric and Moist Mucous Membranes
Cardiovascular: S1-S2 and Regular Rhythm
Respiratory: Clear and Non-Labored Respirations
GI: Soft, Non Distended and Non Tender
Neurology: Awake, Alert, Oriented and No Motor Deficits
Skin: Warm, Dry and Good Color
Labs/Micro/Reports
Lab Data
06/14/25 04:17
06/14/25 04:17
Laboratory Results
06/13/25 06/14/25
12:14 04:17
PT 12.6 13.6
INR 0.90 0.99
APTT 24.7 25.0
--- NOTE | 2025-06-14 08:08 | W.PN.CARDCBS ---
Today's Communication / Plan
-
Medical management for now per neuro, optimization of antiplatelet regimen, blood pressure cholesterol
We will arrange for outpatient follow-up with Dr. De La Torre for evaluation of PFO closure
Will sign off, please call if questions
Impression / Plan
-
PCP: Dr. Conner
Test Clerk: Dr. Michael
Impression:
Presented with dysarthria, L sided weakness
Acute CVA s/p TNK 06/13/2025
h/o CVA 10/2023
s/p Linq monitor 12/05/2023
PFO by LESLIE 11/2023
HLD
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
Echo 06/13/2025: Study pending
Plan:
He seems to be making a good recovery from his right hemispheric stroke.
His RoPE score is 4, suggesting a 38% chance that PFO with paradoxical embolism is the underlying etiology for his stroke. Age greater than 74 noted.
For now, continue to optimize blood pressure, cholesterol, antiplatelet agents per neuro (clopidogrel)
We will arrange for outpatient follow-up with Dr. De La Torre for consideration of PFO closure.
We will sign off. Please call if questions.
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 He presented to [facility] ER for evaluation of slurred speech and L sided weakness. He called his who noted slurred speech. Also had fall while walking to
the bathroom due to L sided weakness. States given concern for CVA he came to ER for evaluation as prehospital CVA alert. Taken urgently to CT scan where brain perfusion scan was concerning for stroke. He was evaluated by neurology and given TNK.
Symptoms improving, but not yet back to baseline. Still has some tingling of L arm/hand. Given known PFO and recurrent CVA, cardiology consulted for evaluation. He notes he has been in his usual state of health recently and has been compliant with
his aspirin and lipitor. No chest pain, palpitations, dizziness, lightheadedness, or LE edema. No recent travel. Linq monitor by recent OP checks has been without arrhythmia, most recently 05/28/2025.
Progress Note - Test Clerk
Subjective
Date of Service: June 14, 2025:
74-year-old man with known PFO, LINQ implant admitted with dysarthria and left-sided weakness/paresthesias consistent with a right hemispheric CVA and received TNK. Asked to evaluate regarding PFO closure
PMH: CVA November 2023, known PFO, LINQ, hyperlipidemia
Current medications: None, outpatient meds atorvastatin and aspirin
102/65, pulse 63, respiratory rate 18, sats 94%, head neck exam unremarkable, no obvious focal neuro defects lungs clear, regular rate and rhythm
Chest x-ray NAD
Hemoglobin 12.4, BUN/creatinine 15 and 1.0, potassium 4.9, LDL is 55
Echo EF 55-60%, mildly dilated RV, mildly dilated right atrium hypermobile atrial septum, trace MR, no AI, normal pulmonary artery systolic pressure
Plan:
Overall he appears to be doing well.
If CT findings consistent with cortical infarct on imaging, rope score would be 4 with 30% chance that stroke is related to PFO. Will arrange for follow-up with Dr. De La Torre as outpatient to determine whether PFO closure is warranted. Will sign off,
please call if questions.
Objective
Labs:
06/14/25 04:17
06/14/25 04:17
Labs
Hgb 12.4 g/dL (13.0-18.0) L 06/14/25 04:17
Hct 35.5 % (39.0-52.0) L 06/14/25 04:17
Plt Count 148 10^3/uL (130-400) D 06/14/25 04:17
PT 13.6 Sec (11.4-14.6) 06/14/25 04:17
INR 0.99 06/14/25 04:17
APTT 25.0 Sec (23.4-35.0) 06/14/25 04:17
Sodium 136 mmol/L (135-145) 06/14/25 04:17
Potassium 4.9 mmol/L (3.5-5.1) 06/14/25 04:17
BUN 15 mg/dl (9-20) 06/14/25 04:17
Creatinine 1.0 mg/dL (0.7-1.3) 06/14/25 04:17
Glucose 98 mg/dl (70-99) 06/14/25 04:17
Vital Signs and I&O:
Vital Signs
Temp Pulse Resp BP Pulse Ox
36.6 C 63 18 102/65 94
06/14/25 03:18 06/14/25 07:32 06/14/25 07:32 06/14/25 07:32 06/14/25 06:30
Vital Signs
Temp Pulse Resp BP Pulse Ox
36.6 C 63 18 102/65 94
06/14/25 03:18 06/14/25 07:32 06/14/25 07:32 06/14/25 07:32 06/14/25 06:30
Intake & Output
06/12/25 06/13/25 06/14/25 06/15/25
07:59 07:59 07:59 07:59
Intake Total 860 / 860
Output Total 1900 / 1900
Balance -1040 / -1040
Physical Exam
Physical Exam
See above
--- NOTE | 2025-06-14 08:21 | W.PN.NEURO.1 ---
Addendum entered and electronically signed by Ramírez Veloz MD 06/14/25 09:48:
Studies reviewed.
I have personally examined the patient. I reviewed and agree with the ELECTRONICS TECHNICIAN APPRENTICE's Note.
My addenda:
Awake, alert, interactive. No acute distress.
Speech intact.
Follows 2-step requests w/o difficulty. No tremor.
Extra-ocular movements grossly intact.
Facial movements full and symmetric. Hearing intact to normal conversational volume.
Normal UE movements bilaterally.
Neck: full ROM.
Chest: no dyspnea
Heart: no JVD
Ext: (-) Clubbing, (-) Cyanosis, (-) Edema
IMPRESSIONS/RECOMMENDATIONS:
Abrupt onset of left facial weakness, left upper extremity weakness and abnormal CT perfusion suggesting right frontal acute ischemic stroke recurrently. Testing now indicates that the patient is not a responder to aspirin. Possible etiologies for
his issue has been hyper homocystinemia and presence of patent foramen ovale with hyperlipidemia.
Replace aspirin with clopidogrel, for lifelong use
Check P2Y12 testing on clopidogrel after loading dose has been provided.
Patient needs cancer screening to ensure this is not an etiology for recurrent stroke
Would repeat hypercoagulable evaluation and patient should have an outpatient evaluation with subspecialist in the field of stroke to ensure adequate treatment of hyperhomocystinemia
Reduce B12 dosing from 3 tablets to 2 tablets daily as the patient has a top normal level
Rehabilitation evaluations and treatment
Appreciate cardiology evaluation for potential PFO closure despite patient being outside the age expected to have benefit
D/W patient
All questions answered.
Will continue to follow as outpatient.
Original Note:
Today's Communication / Plan
-
Recommendations:
� goal normotension after 24 hours
� check MRI of the brain within 22-32 hours of TNK without contrast for localization of the stroke
� continue B12 supplementation
� continue atorvastatin
� goal blood glucose levels for patient would be less than 180 mg/dL
� testing indicates he is not an aspirin responder, give loading dose of clopidogrel 24 hours after TNK and check P2Y12 test to ensure he is a responder, if he is can start Clopidogrel 75 mg daily
� needs hypercoagulable workup outpatient at 6 weeks
Neuro Assessment/Plan
Assessment
Patient is a 74 yo male with a history of CVA (10/2023), HLD, PFO and hyperhomocysteinemia presenting to [facility] on 06/13/2025 with dysarthria, left facial weakness and left upper extremity weakness, numbness and tingling.
Head and neck CTA 10/21/2023: No significant vascular occlusion, aneurysm or dissection.
Brain MRI 10/21/2023: There is a small subtle focus of abnormal restricted diffusion involving the medial insular cortex, compatible with a small focus of acute to subacute infarction. Of note, although not an angiography examination, it appears
that there has likely been recanalization of the insular branch of the right MCA since earlier CT angiography of the head and neck.
TTE 10/21/2023:
Normal left ventricular size, wall thickness and systolic function.
LV ejection fraction is 55-60% by Donahue's method of discs.
Mildly enlarged right ventricular size.
Normal right ventricular systolic function.
Mildly dilated right atrium.
Mild mitral regurgitation.
Trace aortic regurgitation.
Trace tricuspid regurgitation.
Trace pulmonic regurgitation.
Normal pericardium without effusion.
Suboptimal subcostal view.
The IVC is mildly dilated.
No intracardiac thrombus noted
LESLIE 12/05/2023: PFO with right to left and left to right shunting.�
Linq monitor in November 2023.
Head and neck CTA 06/13/2025: Diminished branch vessels of the right middle cerebral artery in the region of the lateral right frontal lobe, which corresponds to the region of elevated Tmax on CT perfusion examination.
No significant calcification or narrowing involving the common carotid arteries, carotid bulbs, or proximal internal carotid arteries bilaterally. No significant narrowing involving the cervical or intracranial portions of the internal carotid
arteries.
No significant narrowing involving the M1 portions of the middle cerebral arteries bilaterally. Normal appearance of the anterior cerebral arteries.
No significant narrowing of the vertebral or basilar arteries. No significant narrowing of the posterior cerebral arteries.
Brain CT:
CBF <30% Volume: 0 mL (estimate of ischemic core)
Tmax >6 second Volume: 8 cc (critically hypoperfused tissue)
CBF/Tmax Mismatch Volume: 8 cc (ischemic penumbra)
CBF/Tmax Mismatch Ratio: Infinite
Hypoperfusion Index (Tmax >10s/Tmax >6s): 0 (predicts rate of collateral flow, infarct growth, and clinical outcome)
CBF <20% Volume: 0 cc (for patient's who arrived to the hospital within 60 minutes of symptom onset)
Perfusion findings suggest penumbra of involving the lateral right frontal lobe, and possibly the anterior and superior aspect of the right temporal lobe. By CT brain perfusion, there are no findings to suggest core infarction.
Labs: Cholesterol 101, LDL 44, Hgb A1C 5.9, Vitamin B12 964, ARU 572(not a responder)
Brain MRI: pending
Plan
Abrupt change in speech, left facial strength and left upper extremity numbness/tingling and weakness due to onset of acute ischemic stroke
Most likely due to known PFO
Recommendations:
� goal normotension after 24 hours
� check MRI of the brain within 22-32 hours of TNK without contrast for localization of the stroke
� continue B12 supplementation
� continue atorvastatin
� goal blood glucose levels for patient would be less than 180 mg/dL
� testing indicates he is not an aspirin responder, give loading dose of clopidogrel 24 hours after TNK and check P2Y12 test to ensure he is a responder, if he is can start Clopidogrel 75 mg daily
� needs hypercoagulable workup outpatient at 6 weeks
All questions encouraged and answered, plan of care discussed with Dr. Veloz, hospitalist and patient
Subjective/Objective
Subjective Data
Date of Service: June 14, 2025
Patient became hypotensive and dizzy early this morning around 0413 while getting labs drawn, given 500cc bolus of NSS. Currently BP stable. Left arm 'back to normal.' Continues with mild left facial weakness.
Objective Data
Vital Signs
Temp Pulse Resp BP Pulse Ox
97.9 F 63 18 102/65 94
06/14/25 03:18 06/14/25 07:32 06/14/25 07:32 06/14/25 07:32 06/14/25 06:30
Lab Results
06/14/25 04:17
06/14/25 04:17
PT 13.6 Sec (11.4-14.6) 06/14/25 04:17
INR 0.99 06/14/25 04:17
APTT 25.0 Sec (23.4-35.0) 06/14/25 04:17
Sodium 136 mmol/L (135-145) 06/14/25 04:17
Potassium 4.9 mmol/L (3.5-5.1) 06/14/25 04:17
BUN 15 mg/dl (9-20) 06/14/25 04:17
Glucose 98 mg/dl (70-99) 06/14/25 04:17
Calcium 8.9 mg/dl (8.4-10.2) 06/14/25 04:17
Phosphorus 2.3 mg/dl (2.5-4.5) L 06/13/25 10:36
LDL Cholesterol, Calc 55 mg/dl 06/14/25 04:17
Vitamin B12 964 pg/ml (239-931) H 06/13/25 10:36
Patient Allergies
No Known Allergies Allergy (Verified 12/05/23 07:45)
Physical Exam
-
General: No Apparent Distress, Comfortable and Appears Stated Age
HEENT: Normocephalic, Atraumatic and Anicteric
Neck: Full Range of Motion
Respiratory: No Dyspnea
Cardiac: No JVD
GI: Non-distended
Skin: Unremarkable
Extremities: No Clubbing, No Cyanosis and No Edema
Psych: Unremarkable
Extended Neurological Exam
Mood & Affect: Mood Unremarkable
Attention Span & Concentration: Awake, Alert, Interactive and No Difficulty with 2 Step Request
Memory: Unremarkable
Tremor: Hand Tremor Absent and Head Tremor Absent
Speech: Quality Unremarkable, Quantity Unremarkable and Rate of Production Unremarkable
Cranial Nerve II: Left Eye: Visual Beasley Intact
Cranial Nerve II: Right Eye: Visual Beasley Intact
Cranial Nerves III, IV, : Extraocular Movement: Extraocular Movement Full in all Directions
Cranial Nerve VII: Facial Symmetry: Reduced (left)
Cranial Nerve VIII: Hearing: Unremarkable Hearing to Normal Conversational Volume
Muscle Strength, Overall: Full Throughout
Pronator Drift: No Drift in Upper Extremities and No Drift in Lower Extremities
Coordination: [id number] Testing Unremarkable and Reaches for Objects without Difficulty
--- NOTE | 2025-06-14 08:30 | PTCARENOTE ---
Received pt @ change of shift. NIH=1- see flow sheet. Pt. reports resolved 'tingling' in 4th/5th fingers; remains w mild L facial droop. SB/SR on monitor. SpO2 96% on RA. +BS, abd soft/nt; tolerating meals. Cont b/b. Remains bedrest d/t TNK
admin yesterday. Plan for MRI today. Neuro checks completed per orders. Call [place] remains w in reach.
--- NOTE | 2025-06-14 13:22 | PTCARENOTE ---
pt. transported down to MRI @ 1100 via wheelchair s/p stoke thrombolytic therapy flow sheet completed. No issues during transport and pt. back to rm [id number]. Further orders received for tele s/p imaging and pt.'s cardiac monitoring switched to tele
pack. PT currently working w patient. remains @ bedside.
[2025-06-14] MEDS: PLAVIX 300 MG PO (13:28)
--- NOTE | 2025-06-14 15:16 | CM ---
RA. MRI today showed few scattered tiny nonhemorrhagic acute/subacute high right parietal lobe infarcts. Discharge POC: Home with no needs. Therapy notes no skilled therapy needs.
--- NOTE | 2025-06-14 15:30 | W.PN.HOSP.TC ---
Today's Communication/Plan
-
Discharge today
Assessment / Plan
Assessment / Plan
Physical Exam
General: No Apparent Distress
HEENT: NormoCephalic, Moist mucous membranes and Atraumatic
Respiratory: Clear
Cardiac: S1/S2 and Regular Rhythm
GI: Soft, Non Tender and Normal Bowel Sounds
Musculoskeletal: No Cyanosis and No Edema
Skin: Warm and Dry
Neuro: Awake, Alert and Oriented x3. Cranial Nerves 2 through 12 grossly intact bilaterally. Sensation grossly intact bilaterally. Strength 5/5 bilaterally in the upper and lower extremities.
Psych: Calm and Intact Judgment/Insight
Assessment/Plan
Concern for Acute Stroke
History of CVA
-Received TNK at 10:27 AM on 06/13/25
-Initial HCT negative but H&N noting diminished R MCA
-Repeat neuroimaging with MRI Brain showed few scattered tiny nonhemorrhagic acute/subacute high right parietal lobe infarcts
-Since Aspirin nonresponder, switch to Plavix 75 mg daily -- I communicated today with neurologist Dr. Veloz and he said okay for discharge on Plavix 75 mg daily
-Check P2Y12 testing as per neurology
-Patient needs cancer screening to ensure this is not an etiology for recurrent stroke
-Needs outpatient repeat hypercoagulable evaluation and patient should have an outpatient evaluation with subspecialist in the field of stroke to ensure adequate treatment of hyperhomocystinemia
-Reduce B12 dosing from 3 tablets to 2 tablets daily given current Vitamin B12 level
-Cardiology: outpatient follow-up with Dr. De La Torre for consideration of PFO closure
Previous history of CVA in 2022
Linq monitor implant
-Per cardiology, Linq monitor was negative for arrhythmia/Afib
History of PFO
Hyperlipidemia
-Continue statin
DVT Prophylaxis: SCDs
Code Status: Full Code
More than 30 minutes spent in discharge including
Final examination of the patient
Summarizing hospital stay
Instructions for continuing care to all relevant caregivers
Preparation of discharge records, prescriptions, and referral forms
Total time spent (in minutes): 37
Anticipated Discharge: Today
Subjective/Interval History
-
Date of Service: June 14, 2025
Patient was seen and examined. He reported that his neurologic symptoms had resolved. He denied any other new, significant symptoms or complaints.
Objective Data
-
Labs:
Laboratory Results
06/14/25
04:17
WBC 8.4
Hgb 12.4 L
Hct 35.5 L
Plt Count 148 D
PT 13.6
INR 0.99
APTT 25.0
Sodium 136
Potassium 4.9
Chloride 109 H
Carbon Dioxide 24
BUN 15
Creatinine 1.0
Glucose 98
Calcium 8.9
Vital Signs:
Vital Signs
Temp Pulse Resp BP Pulse Ox
97.5 F 63 21 121/70 93
06/14/25 12:04 06/14/25 13:15 06/14/25 13:15 06/14/25 13:13 06/14/25 10:15
I&O
06/13/25 06/14/25 06/15/25
06:59 06:59 06:59
Intake Total 860 / 860
Output Total 1900 / 1900
Balance -1040 / -1040
--- NOTE | 2025-06-14 16:05 | CON.MR ---
Addendum entered and electronically signed by Thanh Torres MD 06/14/25 22:37:
Clarification. Patient seen on 06/14/2025.
Original Note:
Documented by User: Veronique Chance MD, Resident 06/14/25 18:45
Consultation
Consultation Request
Date/Time Consultation Requested: 06/13/25 1:30 pm
Requesting Provider: Michael Bentley
Performing Provider: Dr. Torres
Reason for Consultation: CVA with moderate symptoms
Medical History
-
Chief Complaint: Acute CVA
History of Present Illness:
Mr. Pastor Ozuna is a 74-year-old male with a PMH notable for CVA (2022), homocystinuria, paroxysmal afib, PFO (with loop recorder), CKD stage 3, and HLD, who is presenting with slurred speech, left facial droop, left arm weakness (acute onset ~ 8
AM 06/13/25). Fell and hit left forearm and left knee. Not sure if he hit his head. No headache. Symptoms have decreased since admission. History of CVA in 2022. Takes aspirin. No other anticoagulation.
Past Medical History
Past Medical History: CVA (Right MCA 10/2023) and Other (PFO, homocystinuria)
Past Surgical History: Orthopedic (R shoulder ORIF)
Family History
Family History: Early CAD (Father had a CT and bypass surgery at 54yo) and Cancer (Mother had metastatic breast cancer)
Social History
Functional Level Premorbidity:
Independent for all activities.
Current Funct Level: Ambulation, Transfer, UE/LE Dressing:
Ambulated 300 ft, transferred, dressed UE/LE independently without assistive device.
Tobacco: Non-Smoker
Alcohol: None
Drug: None
Personal:
Living: With Family
Is 24 hour care available: No
Number of Floors: 3
# Steps to Enter: 3
# Steps to Second Floor: 12
Potential First Floor Set Up: Yes
Driving: Yes
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
Allergies / Home Medications
Allergy/AdvReac Type Severity Reaction Status Date / Time
No Known Allergies Allergy Verified 12/05/23 07:45
�Medication �Instructions �Recorded �Confirmed �Last Taken �Type
aspirin 81 mg chewable tablet 81 mg PO DAILY Blood Clot 06/13/25 06/13/25 06/13/25 History
Prevention/Tx
atorvastatin 40 mg tablet 40 mg PO QPM High Cholesterol 06/13/25 06/13/25 06/12/25 History
cyanocobalamin (vitamin B-12) 1,000 mcg PO DAILY Supplement 06/13/25 06/13/25 06/12/25 History
1,000 mcg tablet (Vitamin B-12)
Review Of Systems
-
History Source: Patient
Constitutional: Reports No Symptoms
Eye: Reports No Symptoms
Respiratory: Reports No Symptoms
Cardiac: Reports No Symptoms
Neurological: Reports No Symptoms
Physical Exam
Active Medications
Generic Name Dose Route Start Last Admin
Trade Name Freq PRN Reason Stop Dose Admin
Acetaminophen 650 mg 06/13/25 10:45
Acetaminophen 325 Mg Tablet PO 07/11/25 10:44
Q4HPRN PRN
DENNEY, mild pain, or temp >100.4F
Vital Signs
Temp Pulse Resp BP Pulse Ox
97.8 F 67 16 114/67 95
06/13/25 11:39 06/13/25 14:02 06/13/25 14:02 06/13/25 14:02 06/13/25 13:30
Height 5 ft 11 in
Actual Weight 81.8 kg
Body Mass Index (BMI) 25.2
Physical Exam
Physical Exam:
General Appearance/Observation: Well-developed, well-nourished individual in no apparent distress.
Pain/Comfort Assessment: Denies
Mood/Affect: Appropriate
Integumentary/Operative Site:
Pressure Ulcer: absent
Other Type of Wound: absent
Eyes: Conjunctiva/Lids: normal Pupils: pupils equal round and reactive to light and Accommodation
Ears/Nose/Throat: oral mucosa moist, throat clear. Lips/Teeth/Gums: normal
Neck: No muscle spasm or tenderness
Cardiovascular: Heart: regular, no murmur
Pulses: dorsalis pedis 2+ bilaterally
Respiratory: Respiratory Effort/Chest Expansion: normal Auscultation: Clear to auscultation bilaterally
Gastrointestinal: abdomen not tender, no distension, normal abdominal bowel sounds
Genitourinary: No Villela
Rectal Exam: Deferred
Extremities: Edema: None Cyanosis: None Trophic changes: None
Neurology Exam:
Orientation: Alert, Oriented to self, Time, Place
Memory: Intact immediately and at 3 minutes
Higher cortical function
Speech: Intact
Repetition: Intact
Comprehension: Intact
Two step command: Intact
Naming: Intact
Cranial Nerves:
CNII: Pupillary light reflex: Intact Visual Field: Intact
CN III, IV, : Extraocular muscles: Intact
CN V: Facial Sensation at Forehead: Intact , Maxilla: Intact, Mandible: Intact
CN VII: Facial movement: Symmetric full smile, eyebrow raise, eyebrow furrow, and blowing out cheeks. Slightly asymmetric half smile, but could be the patient's baseline.
CN VIII: Hearing: Normal
CN IX/X: Speech & swallow: Normal, Position of Uvula: Midline
CN XI: Shoulder shrug: Symmetric
CN XII: Tongue protrusion: Midline
Sensory:
Light touch: Intact in bilateral upper and lower extremities
Proprioception: Intact
Reflexes:
Triceps: 2+ right. Deferred testing left side due to tenderness/ecchymosis
Achilles: 2+ bilaterally
Babinski: Downgoing bilaterally
Clonus: None
Ho: Negative bilaterally
Cerebellar: Dysmetria/Ataxia: None
Musculoskeletal:
Motor: (Manual muscle scale 0-5)
Muscle SA EF WE EE FF FA HF KE DF EHL PF
Right 5 5 5 5 5 5 5 5 5 5 5
Left 5 5 5 5 5 5 5 5 5 5 5
Tone: Normal in all extremities
Range of Motion: Passively within normal limits in all extremities
Lab Results
06/13/25 13:05
06/13/25 10:36
WBC 8.6 10^3/uL (4.8-10.8) 06/13/25 13:05
Hgb 13.1 g/dL (13.0-18.0) 06/13/25 13:05
Hct 38.0 % (39.0-52.0) L 06/13/25 13:05
MCV 100.3 fL (80.0-94.0) H 06/13/25 13:05
Plt Count 188 10^3/uL (130-400) 06/13/25 13:05
PT 12.6 Sec (11.4-14.6) 06/13/25 12:14
INR 0.90 06/13/25 12:14
Sodium 135 mmol/L (135-145) 06/13/25 10:36
Potassium 5.1 mmol/L (3.5-5.1) 06/13/25 10:36
Chloride 107 mmol/L (98-107) 06/13/25 10:36
Carbon Dioxide 25 mmol/L (22-30) 06/13/25 10:36
BUN 15 mg/dl (9-20) 06/13/25 10:36
Creatinine 1.1 mg/dL (0.7-1.3) 06/13/25 10:36
eGFR > 60.00 06/13/25 10:36
Glucose 107 mg/dl (70-99) H 06/13/25 10:36
Hemoglobin A1c 5.9 % (4.0-5.6) H 06/13/25 10:36
Calcium 8.7 mg/dl (8.4-10.2) 06/13/25 10:36
Phosphorus 2.3 mg/dl (2.5-4.5) L 06/13/25 10:36
Magnesium 1.9 mg/dl (1.6-2.3) 06/13/25 10:36
Diagnostic Results
As per HPI.
CT Head 06/13/25: No evidence of acute intracranial abnormality.
CTA Head/Neck 06/13/25: Diminished branch vessels of the right middle cerebral artery in the region of the lateral right frontal lobe, which corresponds to the region of elevated Tmax on CT perfusion examination.
CT Brain Perfusion 06/13/25: Perfusion findings suggest penumbra of involving the lateral right frontal lobe, and possibly the anterior and superior aspect of the right temporal lobe. By CT brain perfusion, there are no findings to suggest core
infarction.
EKG 06/13/25: NORMAL SINUS RHYTHM
MRI 06/14/25:
FINDINGS: There are a few scattered tiny foci of cortical/subcortical restricted diffusion in the high right parietal lobe, compatible with acute/subacute infarcts. No associated hemorrhage. There is associated hyperintense FLAIR signal suggesting
these are not hyperacute.
IMPRESSION:
Few scattered tiny nonhemorrhagic acute/subacute high right parietal lobe infarcts.
Assessment / Plan
Assessment
Mr. Pastor Vicente is a 74yoM with a PMH notable for a PFO (no arrythmia per loop recorder since ) and homocystinuria, who presented with a left facial droop and LUE weakness and was found to have multiple, tiny, nonhemorrhagic infarcts in the right
parietal lobe. His stroke symptoms have decreased significantly and he is now functional at an independent level.
Plan
PM&R PT/OT to increase independence with ADLs, improve balance, coordination, endurance, strength, mobility, community reintegration, decreased burden of care on others and family education.
CVA: Secondary prophylaxis with clopidogrel 75 mg PO daily, atorvastatin 40 mg PO daily, and blood pressure control (SBP less than 180 and diastolic less than 100 to participate with therapy for ischemic stroke). Continue to monitor neurologic
status.
- Vitamin B12 100 mcg PO daily to reduce hypercoagulability of homocystinuria. Reducing dose since vitamin B12 serum levels are high
Anemia: Likely multifactorial. Continue to monitor.
Skin: monitor for pressure sores/rashes/lesions.
Bowel: Colace and Senna, PRN bisacodyl.
Bladder: Time void, PVRs, PRN straight cath.
GI Prophylaxis: Pantoprazole
DVT Prophylaxis: heparin or Lovenox may be started 24 hours after thrombolytic (given 06/13/25 10:30 am), as brain imaging does not show evidence of hemorrhage
Pulmonary: Incentive spirometry
Safety: Continue to reinforce assistance with all transfers.
Code Status: Full code
Dispo (date/plan/equipment needs): Home with family care. Social history reviewed.
Functional and Medical Goals: Modified Independent with ADL�s, ambulation, transfers
Summary
-
Summary of recommendations:
- Discharge Destination: Home
- Mr. Ozuna's symptoms have significant improved and he is now functional at an independent level. He may benefit from outpatient therapy should there be a decline.
Will sign off, please re-consult if needed.
Thank you for allowing me to care for your patient. Please contact me with any questions or concerns.
Data Reviewed
-
Total face to face time spent with patient (in minutes): 50
Radiology: Report Reviewed by me, Discussed with Physician, Discussed with Patient and Discussed with Family
Labs: Labs Reviewed by me, Discussed with Patient and Discussed with Family
Old Records: Reviewed
Comments
-
This note was dictated using a voice recognition system. Please excuse any typographical errors from applied research director. If you believe there are any discrepancies, please notify our office.

Documented by User: Thanh Torres MD 06/14/25 22:35
Consultation
Consultation Request
Reason for Consultation: CVA
Medical History
-
History of Present Illness:
Mr. Pastor Ozuna is a 74-year-old male with a PMH notable for CVA (2022), homocystinuria, paroxysmal afib, PFO (with loop recorder), CKD stage 3, and HLD, who is presenting with slurred speech, left facial droop, left arm weakness (acute onset ~ 8
AM 06/13/25). Fell and hit left forearm and left knee. Not sure if he hit his head. No headache. Symptoms have decreased since admission. History of CVA in 2022. Takes aspirin. No other anticoagulation. Overall feeling much better today with no
symptoms. His is at bedside and also does not notice any abnormal concerns. He is concerned that he has had TIA and then this CVA. He does have a PFO and is wondering whether something has to be done about that. He does have a loop recorder
that was placed prior and did not show any signs of atrial fibrillation.
Social History
Employment: Retired (Restoring house and car)
Review Of Systems
-
EENT: Reports No Symptoms
Abdomen/GI: Reports No Symptoms
: Reports No Symptoms
Musculoskeletal: Reports No Symptoms
Integumentary: Reports No Symptoms
Hematologic/Lymphatic: Reports No Symptoms
Physical Exam
Physical Exam
Physical Exam:
General Appearance/Observation: Well-developed, well-nourished male in no apparent distress.
Pain/Comfort Assessment: Denies
Mood/Affect: Appropriate
Integumentary/Operative Site: No lesions noted during course of exam
Pressure Ulcer: absent over heels
Eyes: Conjunctiva/Lids: normal Pupils: pupils equal round and reactive to light and Accommodation
Ears/Nose/Throat: oral mucosa moist, throat clear. Lips/Teeth/Gums: normal
Neck: No muscle spasm or tenderness
Cardiovascular: Heart: regular, no murmur
Pulses: dorsalis pedis 2+ bilaterally
Respiratory: Respiratory Effort/Chest Expansion: normal Auscultation: Clear to auscultation bilaterally
Gastrointestinal: abdomen not tender, no distension, normal abdominal bowel sounds
Genitourinary: No V[place]la
Rectal Exam: Deferred
Extremities: Edema: None Cyanosis: None Trophic changes: None
Neurology Exam:
Orientation: Alert, Oriented to self, Time, Place
Memory: Intact for recent medical concerns
Speech: Intact
Repetition: Intact
Comprehension: Intact
Two step command: Intact
Naming: Intact
Cranial Nerves:
CNII: Pupillary light reflex: Intact Visual Field: Intact
CN III, IV, : Extraocular muscles: Intact
CN V: Facial Sensation at Forehead: Intact , Maxilla: Intact, Mandible: Intact
CN VII: Facial movement: Symmetric full smile, eyebrow raise, eyebrow furrow, and blowing out cheeks. Slightly asymmetric half smile, but could be the patient's baseline.
CN VIII: Hearing: Normal
CN IX/X: Speech & swallow: Normal, Position of Uvula: Midline
CN XI: Shoulder shrug: Symmetric
CN XII: Tongue protrusion: Midline
Sensory:
Light touch: Intact in bilateral upper and lower extremities
Proprioception: Intact
Reflexes:
Triceps: 2+ right. Deferred testing left side due to tenderness/ecchymosis
Achilles: 2+ bilaterally
Babinski: Downgoing bilaterally
Clonus: None
Ho: Negative bilaterally
Cerebellar: Dysmetria/Ataxia: None
Musculoskeletal: Motor: (Manual muscle scale 0-5)
Muscle SA EF WE EE FF FA HF KE DF EHL PF
Right 5 5 5 5 5 5 5 5 5 5 5
Left 5 5 5 5 5 5 5 5 5 5 5
Tone: Normal in all extremities
Range of Motion: Passively within normal limits in all extremities
Assessment / Plan
Assessment
Mr. Pastor Ozuna is a 74 y/o M with a PMH notable for a PFO (no arrythmia per loop recorder since ) and homocystinuria, who presented with a left facial droop and LUE weakness and was found to have multiple, tiny, nonhemorrhagic infarcts in the
right parietal lobe. His stroke symptoms have decreased significantly and he is now functional at an independent level.
Plan
PM&R PT/OT to increase independence with ADLs, improve balance, coordination, endurance, strength, mobility, community reintegration, decreased burden of care on others and family education.
CVA: Secondary prophylaxis with clopidogrel 75 mg PO daily, atorvastatin 40 mg PO daily, and blood pressure control (SBP less than 180 and diastolic less than 100 to participate with therapy for ischemic stroke). Continue to monitor neurologic
status.
- Vitamin B12 100 mcg PO daily to reduce hypercoagulability of homocystinuria. Reducing dose since vitamin B12 serum levels are high
Anemia: Likely multifactorial. Continue to monitor.
Skin: monitor for pressure sores/rashes/lesions.
Bowel: Colace and Senna, PRN bisacodyl.
Bladder: Time void, PVRs, PRN straight cath.
GI Prophylaxis: Pantoprazole
DVT Prophylaxis: heparin or Lovenox may be started 24 hours after thrombolytic (given 06/13/25 10:30 am), as brain imaging does not show evidence of hemorrhage
Pulmonary: Incentive spirometry
Safety: Continue to reinforce assistance with all transfers.
Code Status: Full code
Dispo (date/plan/equipment needs): Home with family care. Social history reviewed.
Functional and Medical Goals: Modified Independent with ADL�s, ambulation, transfers
Attending Statement:
I saw and examined the patient today. I reviewed care plan with patient, therapy, nursing, and resident Dr. Chance. I agree with the above subjective and physical exam, and plan as documented by RITESH Sparks with adjustments made as necessary. In
summary Mr. Ozuna is a 74-year-old male with history of a prior TIA with known PFO on aspirin and statin for stroke prophylaxis that presented with another episode of aphasia noted while speaking to a friend. Presented to the hospital and was
found to be a candidate for TNK which she received. Since TNK he feels he has had significant resolution of his symptoms and feels like there is no current deficits. On exam he is doing well neurologically except for some left facial weakness
which does not appear to be inhibiting his speech, swallow, or functional status. Otherwise no significant concerns on his exam. We did discuss his PFO, discussion with cardiology and neurology about possible etiology. We discussed the algorithm
to switch to Plavix from aspirin. He does not have a history of atrial fibrillation and has had his loop recorder evaluated for this. He would like to speak with cardiology and neurology further to make sure there are any other further tests or
interventions that would limit his potential to have a repeat stroke. A total of 60 minutes were spent with the patient preparing for the evaluation, obtaining history, performing examination and evaluation, counseling, data review, case
management, care coordination, order tracer, and EMR documentation. In Occupational Therapy he was independent to modified independent for ADLs independent for transfers and independent for ambulating 300 feet without assistive device and no loss of
balance. Outpatient Occupational Therapy suggested by occupational therapist. No outpatient physical therapy required.
[2025-06-14] MEDS: LIPITOR 40 MG PO (17:00)
--- NOTE | 2025-06-14 17:14 | W.DCSUMMARY ---
Discharge Summary
Discharge Data
Date of Admission: 06/13/25
Date of Discharge: 06/14/25
Total time spent discharging patient (in min): 37
-
Pending Results: No
Hospital Course
74-year-old male with previous history of CVA in 2022, hyperlipidemia, Linq monitor implant, and PFO, presented to the [facility] ER with slurred speech, left facial weakness and left upper extremity numbness and tingling. He noticed these symptoms after
waking up in the morning. NIH score was 5, CT head initially negative. Neurology was consulted and he was given TNK in the emergency room. He denied any other symptoms or complaints. Patient was admitted to the intensive care unit and cardiology
(given concerns over patient's PFO) and automatic wheel line operator were consulted. Cardiology mentioned that patient's LINQ was negative for arrhythmia/Afib, and they also mentioned that patient does not meet current guideline criteria for PFO closure and his ROPE
score was on the lower side but nonetheless, they recommended outpatient evaluation by interventional cardiology structural team, Dr De La Torre for eval for potential for PFO closure. Patient was found to be a non-responder to Aspirin, so his
antiplatelet was switched to Clopidogrel. Patient was found to have strokes on MRI brain. Patient's neurological symptoms and he was stable for discharge.
Discharge Plan
-
Patient Disposition: Home (Routine Discharge)
Discharge Diagnosis/Procedures: Few scattered tiny nonhemorrhagic acute/subacute high right parietal lobe infarcts on MRI Brain
Severe left sphenoid sinus mucosal thickening and mild mucosal thickening of the remaining paranasal sinuses, on hospital imaging
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
Head Imaging
Previous history of CVA in 2022
Linq monitor implant
History of PFO
Hyperlipidemia
Condition: Good
Diet: Low Fat, Low Cholesterol and Low Sodium
Activity: As tolerated
Blood Work: CBC, BMP and P2Y12 testing on Clopidogrel with your primary care provider's office in the next 1 to 2 days
Activity Restrictions/Additional Instructions:
This week, in the next 1-2 days, you need to check P2Y12 testing on Clopidogrel with your primary care provider's office to ensure that your Clopidogrel is working for you. This is VERY important. Testing in the hospital showed that you are not an
Aspirin responder.
-Start taking Clopidogrel on the morning of 06/15/25.
Follow-up closely with qual research manager Dr. De La Torre for consideration of PFO closure
Contact (within the next 7 days) [facility] office ([phone]) in the next 7 days regarding how long you should be taking Clopidogrel. Also, you will likely need refills -- contact the outpatient neurology office about this.
Referrals:
Misty Buitrago CRNP [Specified Professional Personl, Neurology] - in less than 1 week
Referral Note: Hospitalization follow-up (was hospitalized with stroke status post TNK). Patient was instructed to get P2Y12 testing on Clopidogrel outpatient. patient should have an outpatient evaluation with subspecialist in the field of stroke
to ensure adequate treatment of hyperhomocystinemia.
Mohit Conner DO [Family Provider, Family Practice] - in less than 1 week
Referral Note: Hospital Follow-Up following stroke
Tiffany Schmitt MD [Active, Oncology] - in three to four weeks
Referral Note: Patient needs cancer screening to ensure this is not an etiology for recurrent stroke. Need repeat hypercoagulable work-up.
Additional Discharge Medication Instructions: Aspirin has been stopped.
Clopidogrel is new.
Prescriptions:
New
clopidogrel 75 mg Tablet
75 mg PO DAILY Qty: 30 1RF
Continued
cyanocobalamin (vitamin B-12) [Vitamin B-12] 1,000 mcg Tablet
1,000 mcg PO DAILY
atorvastatin 40 mg tablet
40 mg PO QPM
Discontinued
aspirin 81 mg Tablet,Chewable
81 mg PO DAILY
Discharge Orders:
Discharge Patient (As Directed); Ordered 06/14/25
Ordered By: Michael Bentley
Discharge Date and Time
Discharge Date/Time: 06/14/25 18:05
Print Language: MARSHALLESE
--- NOTE | 2025-06-14 18:15 | PTCARENOTE ---
Discharge approved by neuro per Dr. Bentley. Discharge packet completed w patient and ; all questions answered. Tele pack d/c'd and PIVs removed. Pt. d/c'd via wheelchair w staff escort to home w . No further needs from this RN.
--- NOTE | 2025-06-15 08:53 | CM ---
Patient was medically cleared for discharge on 06/14/25 in evening with no additional skilled services. Patient arranged for transport home .
== END 2025-06-14 18:05 | disposition home or self-care (01) | DRG 62 ==
LOC: ICU 11:13
PROVIDERS: Nurse Practitioner; ADMITTING PHYSICIAN Hospitalist; CONSULT PHYSICIAN Nuclear Medicine Nuclear Cardiology; CONSULT PHYSICIAN Physical Medicine & Rehabilitation; CONSULT PHYSICIAN Psychiatry & Neurology Neurology; EMERGENCY PHYSICIAN Emergency Medicine; FAMILY PHYSICIAN Family Medicine; OTHER PHYSICIAN Internal Medicine
PROC: 3E03317 Introduction of Other Thrombolytic into Peripheral Vein, Percutaneous Approach (ICD-10-PCS; 2025-06-13)
DX: I63.89 Other cerebral infarction (principal); Q21.12 Patent foramen ovale; Z86.73 Personal history of transient ischemic attack (TIA), and cerebral infarction without residual deficits; E78.2 Mixed hyperlipidemia; R47.1 Dysarthria and anarthria; R29.810 Facial weakness; R29.705 NIHSS score 5; G83.24 Monoplegia of upper limb affecting left nondominant side; I48.0 Paroxysmal atrial fibrillation; N18.30 Chronic kidney disease, stage 3 unspecified; E53.8 Deficiency of other specified B group vitamins; D64.9 Anemia, unspecified; G93.89 Other specified disorders of brain; J34.89 Other specified disorders of nose and nasal sinuses; Z79.82 Long term (current) use of aspirin
CPT/HCPCS: 0042T; 70450; 70496; 70498; 70551; 71045; 80048; 80061; 82607; 82962; 83036; 83735; 84100; 85025; 85027; 85576; 85610; 85730; 92610; 93005; 93306; 96374; 97162; 97167; 99291; J3101; Q9967

== ENCOUNTER 2025-07-27 07:47 | Day surgery (SDC) | payer OTHER, SELFPAY ==
[2025-07-27] VITALS (13 sets, daily range): BP systolic 90–134; BP diastolic 47–84; BMI 25.1
--- NOTE | 2025-07-27 07:44 | ITS.CL.PN ---
Copy Manager - Procedure Note
Procedure
Procedure Note:
RIGHT HEART CATHETERIZATION AND PATENT FORAMEN OVALE (PFO) CLOSURE
Date of procedure: July 27, 2025
Referring physician: Martinez Michael
Pre-op diagnosis: Cryptogenic stroke, presence of PFO
Post-op diagnosis: Cryptogenic stroke, presence of PFO
Indication: Cryptogenic stroke (after extensive discussion with patient and neurology with no clear etiology of CVA and in shared decision making after reviewing risks and benefits and alteratives).
Procedures performed:
1. Percutaneous PFO closure with 30 mm Amplatzer Talisman PFO Occluder (REF #[id number] ; LOT #[id number])
2. Right heart catheterization.
3. Ultrasound-guided access
magistrate assistant: Lindsey De La Torre MD, [facility], [facility]
Type of echocardiography: Intracardiac Echocardiography (ICE)
Access:
1. Two 9 Belgian sheaths (9Fr x 11cm and 9Fr x 25cm) in the right common femoral vein using a micropuncture kit under US guidance.
Ultrasound was utilized for vascular access. The right femoral vein were visualized under ultrasound, and the vessel was patent. An image was stored permanently in the patient's medical record. Under direct ultrasound guidance, two 9 Belgian
sheaths (11cm and 23cm) were inserted into the right common femoral vein, using a micropuncture kit through a modified Seldinger technique.
RIGHT HEART CATHETERIZATION
Hemodynamics (mmHg):
RA (m) : 6
RV (s/d,m) : 31/4, 9
PA (s/d, m) : 35/11, 19
PCWP (m) : 16
PA saturation:78.5 % on room air
AO saturation non-invasively 97% on room air
RA saturation: 79.8% on room air
Cardiac Output: 8.13 L/min by Laureen calculation
Cardiac Index : 4.04 L/min/m-2 by Laureen calculation
Procedure:
The patient was brought to the interventional cardiology suite in fasting state. The patient was given Plavix 600mg pre-procedurally and Ancef IV was given by Anesthesia. Bilateral femoral areas were prepped and draped in standard sterile fashion.
The right femoral vein was accessed about 1cm apart twice using a modified Seldinger technique and two 9 Belgian sheaths were placed 1 is below the other (short 9 Belgian by 11 cm on the top and a long 9 Belgian by 25 cm at the bottom. Full dose IV
heparin was given to achieve an ACT greater than 300 seconds, which was maintained throughout the procedure. After confirming that there was no significant step up on the shunt run by performing a right heart catheterization, ICE catheter was
advanced through the 9 Belgian by 25 cm venous sheath and basic images were obtained and saved including the view of the interatrial septum and the PFO seen by color Doppler. Using ICE and fluoroscopy guidance, a 0.035' J wire was advanced from the
right femoral vein and up into the right atrium and a 6Fr. multipurpose catheter was advanced over this wire. The J-wire was removed and catheter was flushed. A Canas wire was advanced through the multipurpose catheter and after multiple passes we
successfully crossed the PFO into the left atrium. The multipurpose catheter was advanced over the wire into the left upper pulmonary vein. The wire was removed and the catheter was flushed. A 0.035 superstiff Amplatz wire was advanced through the
multipurpose catheter and parked into the left upper pulmonary vein.
The multipurpose catheter was removed. The 9 Belgian sheath was removed. Based on the anatomy (interatrial septal aneurysm), we decided to move forward with implantation of a 30 mm Amplatzer Talisman PFO Occluder device. On the back table, we
turned our attention to prepping the closure device. A [ ] mm Amplatzer Talisman PFO Occluder device was placed in a bowl of heparinized saline. The Tuohy-Mira valve and its extension were appropriately flushed. The device was submerged in saline
and the valve and extension were slowly flush with water while the occlusion device was retracted into it, ensuring that the device was completely de-aired.
The 9 Belgian Talisman delivery sheath was advanced over the Super Stiff Amplat'sz wire into the IVC. The dilator was retracted at this point to completely de-aired the system. The sheath itself was then advanced over the Super Stiff Amplatz wire
into the left atrium and the Super Stiff wire was taken out. The sheath was de-aired and flushed. We connected the sheath with the closure device assembly with a wet to wet connection. The occluder was advanced through the sheath and into the left
atrium. Left atrial disc was deployed. The entire assembly was retracted until the left atrial disc was firmly against the interatrial wall under fluoroscopy and ICE guidance. The right atrial disc was deployed under tension and allowed to settle on
the right atrial side of the septum.
Echocardiographic images were obtained in multiple views showing good placement of the occlusion device. The interatrial septum is clearly visible between the 2 discs. The discs do not appear to be interfering with the aorta. After performing
appropriate pushing and pulling of the device to ensure good placement ([place] wiggle), the device was released. Once again, echocardiography confirmed good placement. ICE catheter was then taken out.
The Talisman sheath and the 9Fr x 25mm sheath was removed from the right femoral vein and a rxfdse-gx-qfkym suture was placed over access site with good hemostasis. Additional manual pressure was held for 10 minutes. The patient tolerated the
procedure well with no acute complications. She remained hemodynamically stable throughout the procedure.
Fluoro Time: 20 min, Dose: 138 mGy, DAP : 16.2 Gy.cm2
Conclusions:
1. Successful ICE guided percutaneous PFO closure with 30 mm Amplatzer Talisman PFO Occluder (REF #[id number] ; LOT #[id number])with no acute complications.
Recommendations:
1. Routine care post PFO closure.
2. Limited weight bearing for 2 days.
3. DAPT with aspirin and clopidogrel for 6 months, followed by aspirin indefinitely.
4. Limited echocardiogram prior to discharge.
5. Removal of jcuzdx-nz-glcfg stitch prior to discharge.
6. Repeat echocardiogram in 1 month with outpatient cardiology follow up.
Lindsey De La Torre MD, FACC, [facility]
Copy to: Dr. Martinez Bower
[2025-07-27 08:41] LABS: Hematocrit 42.7 % (39.0-52.0); Hemoglobin 14.4 g/dL (13.0-18.0); Mean Corp Hgb Conc. 33.7 g/dL (33.0-37.0); Mean Corpuscular Volume 99.3 fL (80.0-94.0); Platelet Count 248 10^3/uL (130-400); Red Cell Dist. Width 13.3 % (11.5-14.5)
[2025-07-27] MEDS: LOW STRENGTH ASPIRIN 324 MG PO (09:18)
[2025-07-27 09:31] LABS: Blood Urea Nitrogen 17 mg/dl (9-20); Calcium 10.0 mg/dl (8.4-10.2); Carbon Dioxide 25 mmol/L (22-30); Chloride 109 mmol/L (98-107); Estimated Creatinine Clearance 54 ml/min; Glucose 114 mg/dl (70-99); Potassium 4.8 mmol/L (3.5-5.1); Sodium 141 mmol/L (135-145); eGFR 58.01
[2025-07-27 11:35] LABS: ACT-LR - POC 237 Seconds (116-155)
[2025-07-27 11:53] LABS: ACT-LR - POC 314 Seconds (116-155)
--- NOTE | 2025-07-27 16:16 | W.PN.UPDATE ---
Update Note
Progress Note Update
74 yo WM s/p 30mm PFO closure (same day). He denies cp, sob, maria alejandra diet, voiding, R fem site c/d/i, soft. EKG SR. Echo as below and will have repeat in 1 mo. He will be on DAPT ASA/Brilinta for 6 mo, then ASA monotherapy. Activity restrictions
reviewed. He will f/u Dr. Michael in 1 mo. He is for d/c home after 6p if groin stable.
SUMMARY
1. Limited echocardiogram post 30mm Amplatzer patent foramen ovale occluder device.
2. Normal left ventricular size and systolic function. Estimated LVEF 60-65% by visual assessment.
3. Normal right ventricle size and function.
4. No signficant valvular abnormalities within limits of study.
5. Well seated 30mm Amplatzer patent foramen ovale occluder device with no evidence of shunt by color flow Doppler.
6. Compared to prior echocardiogram from May,, there is now a patent foramen ovale occluder device noted.
[2025-07-28 08:27] LABS: ACT-LR - POC 255 Seconds (116-155)
== END 2025-07-27 17:57 | disposition home or self-care (01) ==
LOC: CATH 07:47
PROVIDERS: ATTENDING PHYSICIAN Internal Medicine Interventional Cardiology; FAMILY PHYSICIAN Physician Assistant Medical; OTHER PHYSICIAN Internal Medicine Cardiovascular Disease
DX: Q21.12 Patent foramen ovale (principal); Z86.73 Personal history of transient ischemic attack (TIA), and cerebral infarction without residual deficits; Z79.02 Long term (current) use of antithrombotics/antiplatelets; Z79.82 Long term (current) use of aspirin; Z95.818 Presence of other cardiac implants and grafts
CPT/HCPCS: 93580; 93662; 80048; 85027; 85347; 93005; 93308; C1759; C1769; C1817; C1892; C1894

== ENCOUNTER 2025-07-28 09:17 | Emergency (ER) | payer OTHER, SELFPAY ==
[2025-07-28 09:18] VITALS: BP 125/74
--- NOTE | 2025-07-28 09:26 | ED.GENMED ---
History of Present Illness
<JOSE M Caba - Last Filed: 07/28/25 10:46>
General
Chief Complaint: Post Operative Problem(s)
Source: patient
Exam Limitations: none
Time Seen by Provider: 07/28/25 09:25
Nursing documentation reviewed up to this point in time: agreed with
History of Present Illness
History of Present Illness:
Patient is a 74-year-old male being sent to the emergency department by cardiology Dr. Michael for bleeding wound. Patient had a PFO closure yesterday. Patient is on dual acting platelet therapy, with aspirin and Brilinta for 6 months. It is
documented that they did remove guqjph-zt-vfsvm stitch prior to discharge
Past History
<JOSE M Caba - Last Filed: 07/28/25 10:46>
Past History
ED Past Medical History: CVA (right MCA ) and Other (PFO)
ED Past Surgical History: Orthopedic (R shoulder ORIF)
Social History
Tobacco: Non-smoker
Alcohol: None
Personal:
Living: with family
Family History
Family History: Other (reviewed and non-contributory)
Phy Exam
<JOSE M Caba - Last Filed: 07/28/25 10:46>
General Physical Exam
General Presentation: no apparent distress
General age: appears stated age
General Skin: warm and dry
General Habitus: normal
General Mental: alert
General Hydration: appears well hydrated
Neurological Exam
Neurological Exam: alert and oriented x3
Musculoskeletal Exam
Musculoskeletal Exam: other (right groin with small oozing of blood from puncture site + strong femoral pulses)
Skin Exam
Skin Exam: normal color and warm/dry
Psychiatric Exam
Psychiatric Exam: normal mood/affect
Course
<JOSE M Caba - Last Filed: 07/28/25 10:46>
Orders/Labs/Results
Orders:
Orders
07/28/25 09:46
US Groin (vascular exam) RT Urgent
Comment:
Reason For Exam: eval for pseudoaneurysm; bleeding after PFO R groi
07/28/25 10:22
CARDIOLOGY CONSULT Urgent
Consulting Provider: Lindsey De La Torre
Was physician already notified: Yes
Reason for consult: bleeding post op
Vital Signs
Initial and Last Documented VS:
Initial Vital Signs
Temp Pulse Resp BP Pulse Ox
97.5 F 89 18 125/74 96
07/28/25 09:18 07/28/25 09:18 07/28/25 09:18 07/28/25 09:18 07/28/25 09:18
Last Documented Vital Signs
Temp Pulse Resp BP Pulse Ox
97.5 F 89 18 125/74 96
07/28/25 09:18 07/28/25 09:18 07/28/25 09:18 07/28/25 09:18 07/28/25 09:29
Feather Drying Machine Operator consulted with Physician
Feather Drying Machine Operator consulted with physician?: Yes
Name of Physician Consulted: Wendy
<Jose Alfredo Nguyen DO - Last Filed: 07/28/25 09:48>
Orders/Labs/Results
Orders:
Orders
07/28/25 09:46
US Groin (vascular exam) RT Urgent
Comment:
Reason For Exam: eval for pseudoaneurysm; bleeding after PFO R groi
07/28/25 10:22
CARDIOLOGY CONSULT Urgent
Consulting Provider: Lindsey De La Torre
Was physician already notified: Yes
Reason for consult: bleeding post op
Vital Signs
Initial and Last Documented VS:
Initial Vital Signs
Temp Pulse Resp BP Pulse Ox
97.5 F 89 18 125/74 96
07/28/25 09:18 07/28/25 09:18 07/28/25 09:18 07/28/25 09:18 07/28/25 09:18
Last Documented Vital Signs
Temp Pulse Resp BP Pulse Ox
97.5 F 89 18 125/74 96
07/28/25 09:18 07/28/25 09:18 07/28/25 09:18 07/28/25 09:18 07/28/25 09:29
<JOSE M Caba - Last Filed: 07/28/25 10:46>
MDM/Problems Addressed
Differential Diagnosis Includes:
Not limited to pseudoaneurysm postop bleeding
MDM/Problems Addressed:
Patient is a 74-year-old male status post PFO repair yesterday. After reviewing notes it appears that the entrance site was at the femoral vein. On exam patient is slowly oozing bright red blood no pulsating. He has drawn femoral pulses. He did
not take his aspirin and Brilinta today. I spoke with vascular surgery who does recommend pseudoaneurysm study.
Patient was evaluated by DR De La Torre, who did inject lidocaine with epinephrine to the area. prelim US read is negative. will plan to d/c home. no further bleeding. pt is to take his ASA /Brilinta
Instructions reviewed with patient and
Chronic conditions affecting care:
History of stroke on aspirin and Brilinta recent PFO repair
<JOSE M Caba - Last Filed: 07/28/25 10:46>
*Radiology
Radiology exam reviewed: radiology read reviewed
*Pulse Oximetry
SaO2: 96
Oxygen Mode of Delivery: Room air
Patient hypoxic: no
*Critical Care Note
Total Time (30-74mins, 75-104mins- exclusive of procedures): Not Applicable
ED Attending Note
<JOSE M Caba - Last Filed: 07/28/25 10:46>
-
Portions of this chart may have been created with voice recognition software.� Occasional wrong word or��sound alike� substitutions may have occurred due to the inherent limitations of voice recognition software.
<Jose Alfredo Nguyen DO - Last Filed: 07/28/25 09:48>
ED Attending Note
Patient seen and examined by attending physician: Yes
I performed the substantive portion of visit, reviewed & personally made and approve the management plan that is documented in note by myself or JON.: Yes
ED Attending Note:
I evaluated patient at bedside. The patient has two 3 mm puncture wounds with scant amount of bleeding noted just medial to palpation of the right femoral artery. There is no surrounding ecchymosis.
Discharge Plan
Departure
Patient Disposition: Home (Routine Discharge)
Date of Disposition: 07/28/25
Time of Disposition: 10:35
Patient with high blood pressure during this ER visit?: Yes
Condition: Fair
Covid-19: Not Applicable
Discharge Problem:
Post-op bleeding
Instructions: Bleeding After Surgery
Prescriptions:
No Action
cyanocobalamin (vitamin B-12) [Vitamin B-12] 1,000 mcg Tablet
1,000 mcg PO DAILY
atorvastatin 40 mg tablet
40 mg PO QPM
ticagrelor 90 mg Tablet
90 mg PO BID
aspirin [aspirin] 81 mg tablet,delayed release (DR/EC)
81 mg PO DAILY Qty: 1 0RF
Referrals:
Km Mulligan PA-C [Family Provider, Family Practice]
Lindsey De La Torre MD [Active, Cardiology]
Activity Restrictions/Additional Instructions:
As discussed keep dressing in place and change only every 24 hours as needed .
return if any worsening of symptoms.
Please continue to take your medications including aspirin and Brilinta.
Return if any worsening of symptoms
Follow-up with cardiology as needed and scheduled
Interventions
Interventions:
*Risk Screen - Suicide Last Done: 07/28/25 09:18
*General Assessment Last Done: 07/28/25 09:18
Discharge Date and Time
Print Language: ITALIAN
[2025-07-28 10:25] VITALS: BP 102/58
[2025-07-28 11:03] VITALS: BP 111/15
--- NOTE | 2025-07-28 16:40 | CON.CAR ---
Consultation
Consultation Request
Date/Time Consultation Requested: 07/28/2025
Date/Time Consultation Performed: 07/28/2025
Requesting Provider: Dione DELCID
Performing Provider: Lindsey De La Torre
Reason for Consultation: Post procedure bleeding
Medical History
-
Chief Complaint: Post procedure bleeding
History of Present Illness:
Mr. Ozuna is a 74-year-old gentleman with past medical history of hyperlipidemia and 2 prior strokes with a known PFO with a percutaneous PFO closure with a 30 mm Amplatzer PFO occluder device on July 27, 2025 after a thorough workup was
completed and his strokes were deemed to be cryptogenic in nature who presents today with postprocedure oozing at the right common femoral venous access site. Patient had an uneventful procedure yesterday with 2 venous 9 Danish sticks and a figure
of 8 suture at the end with successful hemostasis prior to discharge with no issues at the groin site. He reports no discomfort over the evening and overnight however had recurrent oozing requiring switches in his dressing 5-6 times through the
night. Eventually he called our office this morning in cardiology and was directed to the emergency room. He denies any other symptoms. Specifically no chest discomfort, shortness of breath or any other cardiac symptoms. No issues at the groin
sites in regards to swelling or discomfort. He had been on bedrest through the night. No strenuous activity or heavy lifting.
Past Medical History
Past Medical History: CVA and Hypercholesterolemia
Past Surgical History: None
Social History
Tobacco: Non-Smoker
Alcohol: Occasional
Drug: None
Personal:
Living: With Family
Employment: Retired
Family History
Family History: Reviewed & Not Pertinent
Allergies / Home Medications
Allergy/AdvReac Type Severity Reaction Status Date / Time
No Known Allergies Allergy Verified 07/28/25 09:18
�Medication �Instructions �Recorded �Confirmed �Type
atorvastatin 40 mg tablet 40 mg PO QPM High Cholesterol 06/13/25 07/27/25 History
cyanocobalamin (vitamin B-12) 1,000 mcg PO DAILY Supplement 06/13/25 07/27/25 History
1,000 mcg tablet (Vitamin B-12)
aspirin 81 mg tablet,delayed 81 mg PO DAILY #1 tab 07/27/25 Rx
release
ticagrelor 90 mg tablet 90 mg PO BID 07/27/25 07/27/25 History
Review of Systems
-
All other systems: Negative unless noted
Physical Exam
Vital Signs
Temp Pulse Resp BP Pulse Ox
97.5 F 84 18 111/15 96
07/28/25 09:18 07/28/25 11:06 07/28/25 09:18 07/28/25 11:03 07/28/25 09:29
Physical Exam
General: Well Developed, Well Nourished, No Apparent Distress and Comfortable
HEENT: Moist Mucous Membranes
Respiratory: Clear and Non Labored Respirations; Negative Wheezes or Crackles
Cardiac: S1/S2 and Regular Rhythm; Negative Murmur, Rub, JVD or HJR
GI: Soft, Non Tender, Non Distended and Normal Bowel Sounds
Genito-urinary: No Costovertebral Tender
Musculoskeletal: No Clubbing, No Cyanosis, No Edema and Other (Right groin access site without evidence of hematoma or bruit. Minimal oozing.)
Skin: Warm and Dry
Neuro: Alert and Oriented
Impression / Plan
-
Mr. Ozuna is a 74-year-old gentleman with past medical history of hyperlipidemia and 2 prior strokes with a known PFO with a percutaneous PFO closure with a 30 mm Amplatzer PFO occluder device on July 27, 2025 after a thorough workup was
completed and his strokes were deemed to be cryptogenic in nature who presents today with postprocedure oozing at the right common femoral venous access site.
Hyperlipidemia
Cryptogenic stroke
PFO s/p percutaneous PFO closure with a 30 mm Amplatzer PFO occluder device
Right common femoral vein oozing/bleeding
Right groin ultrasound: No evidence of hematoma or pseudoaneurysm. No AV fistula
Overall patient is progressing well post procedurally with no evidence of acute groin issues or complications. Given minimal oozing 20 cc of lidocaine with epinephrine was injected by myself at bedside with successful hemostasis. Dressing was
placed and extensive time was spent with patient and his reviewing indications to call us immediately in case there is any increase bleeding, swelling or pain.
Patient is okay to walk around and does not need to be on bedrest. He knows to continue daily baby aspirin and Brilinta for his recent PFO closure.
Discussed all of the above with patient and at bedside along with primary team in the emergency room.
Otherwise stable for discharge from a cardiac standpoint.
Lindsey De La Torre MD, FAC, [facility]
Data Reviewed
-
Radiology: Report Reviewed by me
Old Records: Reviewed
Total Time Spent with Patient (in minutes): 56
== END 2025-07-28 11:12 | disposition home or self-care (01) ==
LOC: EMR 09:17
PROVIDERS: CONSULT PHYSICIAN Internal Medicine Interventional Cardiology; EMERGENCY PHYSICIAN Emergency Medicine; FAMILY PHYSICIAN Physician Assistant Medical
DX: I97.618 Postprocedural hemorrhage of a circulatory system organ or structure following other circulatory system procedure (principal); Y83.9 Surgical procedure, unspecified as the cause of abnormal reaction of the patient, or of later complication, without mention of misadventure at the time of the procedure; E78.00 Pure hypercholesterolemia, unspecified; Z86.73 Personal history of transient ischemic attack (TIA), and cerebral infarction without residual deficits; Z79.82 Long term (current) use of aspirin; Z79.02 Long term (current) use of antithrombotics/antiplatelets
CPT/HCPCS: 99284; 93926

== ENCOUNTER 2025-08-08 15:02 | Emergency (ER) | payer OTHER, SELFPAY ==
[2025-08-08] VITALS (25 sets, daily range): BP systolic 93–143; BP diastolic 66–96; BMI 24.6
[2025-08-08 15:41] LABS: Hematocrit 44.8 % (39.0-52.0); Hemoglobin 15.4 g/dL (13.0-18.0); Mean Corp Hgb Conc. 34.4 g/dL (33.0-37.0); Mean Corpuscular Volume 100.2 fL (80.0-94.0); Nucleated Red Blood Cells % 0 % (-); Platelet Count 256 10^3/uL (130-400); Red Cell Dist. Width 12.8 % (11.5-14.5)
[2025-08-08 15:42] LABS: ALT (SGPT) 29 U/L (0-50); AST (SGOT) 25 U/L (17-59); Albumin 4.6 g/dl (3.5-5.0); Alkaline Phosphatase 92 U/L (38-126); Blood Urea Nitrogen 15 mg/dl (9-20); Calcium 10.3 mg/dl (8.4-10.2); Carbon Dioxide 25 mmol/L (22-30); Chloride 108 mmol/L (98-107); Glucose 112 mg/dl (70-99); Potassium 5.1 mmol/L (3.5-5.1); Sodium 139 mmol/L (135-145); Total Protein 7.6 g/dl (6.3-8.2); eGFR > 60.00
--- NOTE | 2025-08-08 17:25 | ED.GENMED ---
History of Present Illness
General
Chief Complaint: Heart Rate Problem
Time Seen by Provider: 08/08/25 17:25
History of Present Illness
History of Present Illness:
FOCUSED PAST MEDICAL HISTORY
- Had PFO closure July 2025
REVIEW OF OLD RECORDS
- I reviewed records from 07/27/2025 when he had the PFO as well as the following day when he came here with post procedural bleeding
Note:
CHIEF COMPLAINT(S)
Palpitations and suspected arrhythmia.
HISTORY OF PRESENT ILLNESS
The patient is a 74-year-old male who presented with complaints of feeling an abnormal heart rhythm, described as palpitations, which began at approximately 11:30 AM. The patient has not experienced this sensation before and confirmed via a link
monitor that the heart rate reached 150 beats per minute. He reported feeling unwell, prompting him to contact his cardiologists office. The patients cardiologists office recommended urgent evaluation and expedited transmission of the link monitor
data. There is a history of prior stroke, and a patent foramen ovale (PFO) closure was performed 12 days ago.
The patients link monitor reportedly indicated atrial fibrillation or atrial flutter. The patient described, 'I can feel something right here but Fadia never felt before.' The patient denies any prior episodes of palpitations. His main reservoir engineering manager is
Dr. Haji. Currently, the patient is not on anticoagulation therapy such as apixaban (Eliquis) but is taking ticagrelor (Brilinta) and aspirin.
PAST MEDICAL AND SURIGICAL HISTORY
History of stroke. Recent PFO closure (12 days ago).
MEDICATIONS
- Ticagrelor (Brilinta)
- Aspirin
- Atorvastatin (statin)
- Vitamin B12
PHYSICAL EXAM
General: Alert, no acute distress.
Skin: Warm, dry.
Head: Normocephalic, atraumatic.
Neck: Supple, trachea midline.
Eye, Ears, Nose, Mouth and Throat: Oral mucosa moist.
Cardiovascular: Normal peripheral perfusion, No edema. Tachycardic, irregular
Respiratory: Respirations are non-labored.
Gastrointestinal: Abdomen nondistended.
Back: Normal range of motion, Normal alignment.
Musculoskeletal: Normal range of motion, normal strength.
Neurological: Alert and oriented to person, place, time, and situation, No focal neurological deficit observed.
Psychiatric: Cooperative, appropriate mood & affect.
PROBLEM LIST
Acute Problems:
- Palpitations/suspected arrhythmia.
Chronic Problems:
- History of stroke.
PLAN
- Contact the patients reservoir engineering manager to discuss the link monitor data and potential arrhythmia management.
- Consider potentially cardioverting the patient if the arrhythmia is confirmed and deemed safe by the reservoir engineering manager.
- Monitor the patient for any signs of hemodynamic instability or syncope.
- Reassess the medication regimen with a focus on rate or rhythm control if indicated upon further cardiologic evaluation.
DIFFERENTIAL DIAGNOSIS
The Differential Diagnosis includes, in no particular order and is not limited to:
- Atrial fibrillation
- Atrial flutter
- Other supraventricular tachycardia
- Premature atrial contractions
- Sinus tachycardia
- Multifocal atrial tachycardia
- Ventricular tachycardia
- Heart failure
- Electrolyte imbalance
- Anxiety/panic attack
SUMMARY OF ENCOUNTER
The patient, a 74-year-old male, presented with palpitations and suspected arrhythmia. He was successfully cardioverted using synchronized cardioversion at 200 joules after consultation with Dr. Garcia. The patient tolerated the procedure well. A
TSA was added for further evaluation but is still pending.
DISPOSITION
The patient was instructed to follow up with his reservoir engineering manager.
PLAN
The patient will begin treatment with apixaban (Eliquis) and discontinue ticagrelor (Brilinta).
PROCEDURES
Cardioversion was performed with 200 joules using synchronized cardioversion.
FOLLOW-UP INSTRUCTIONS
The patient is advised to follow up with his reservoir engineering manager for further management.
MEDICATION RECONCILIATION
The patients medication regimen will change: he will start apixaban (Eliquis) and discontinue ticagrelor (Brilinta).
MEDICAL DECISION MAKING
- Number and Complexity of Problems Addressed: Chronic conditions affecting care include a history of stroke and recent palpitations/suspected arrhythmia. Differential diagnosis includes atrial fibrillation, atrial flutter, and other
supraventricular tachycardia among others.
- Data:
Category 3: Discussion of management with Dr. Wooten regarding the use of synchronized cardioversion as the treatment method.
- Risk: Consideration of Admission/Observation: Escalation of care including admission/observation was considered given the complexity and risk of the patients presenting complaint, exam findings, and the recent procedure (PFO closure and history of
stroke). However, ultimately, I feel the patient is safe for outpatient management with close follow-up as the procedure was tolerated well.
DIAGNOSIS
- Atrial Fibrillation with RVR
- Palpitations (R00.2)
- History of Stroke (I63.9)
EKG
- Suspect A-fib/flutter with variable rate, ventricular rate 117
LABS
- White count and hemoglobin are normal, chemistries unremarkable, TSH added but pending
UPDATE
-I reached out to Dr. Vicente at 5:40 PM. We agreed that it would be best for him to have electrocardioversion. He recommends that we have him stop the Brilinta and start Eliquis. He is to follow-up with Dr. Michael.
Past History
Past History
ED Past Medical History: CVA (right MCA ) and Other (PFO)
ED Past Surgical History: Orthopedic (R shoulder ORIF)
Social History
Tobacco: Non-smoker
Alcohol: None
Personal:
Living: with family
Family History
Family History: Other (reviewed and non-contributory)
Phy Exam
Physical Exam
Physical Exam:
See HPI
Course
Orders/Labs/Results
Orders:
Orders
08/08/25 15:02
Electrocardiogram (*1) Urgent
Reason for Study: Atrial Fibrillation
08/08/25 15:03
EKG- Treatment ONCE
08/08/25 15:18
Complete Blood Count/With Diff Urgent
Comprehensive Metabolic Panel Urgent
Magnesium Urgent
Comment: ADDON
TSH Reflex To Free T4 Urgent
Comment: ADDON
08/08/25 17:42
Add On- LAB Urgent
Tests Added?: mg, tsh reflex fT4
Diltiazem HCl [Cardizem] 10 mg IV NOW STA
08/08/25 17:45
Diltiazem 125 mg/125 ml Nss [Cardizem] 125 mg in 125 ml IV PER PROTOCOL
Initial dose in mg/hr, then titrate:: 5
Titrate to keep:: Heart rate 80-100 bpm
Titrate by mg/hr:: 5 mg/hr
Frequency of titrations (minutes):: 15
Maximum dose in mg/hr:: 15
08/08/25 18:03
Propofol [Diprivan] 20 ml .ROUTE .STK-MED
08/08/25 18:40
Electrocardiogram (*1) Urgent
Reason for Study: Atrial Fibrillation
EKG- Treatment ONCE
08/08/25 19:50
Apixaban [Eliquis] 5 mg PO NOW STA
Abnormal Lab Results
08/08/25
15:18
RBC 4.47 L 10^6/uL
(4.70-6.10)
MCV 100.2 H fL
(80.0-94.0)
MCH 34.5 H pg
(27.0-31.0)
Absolute Monos (auto) 0.7 H 10^3/uL
(0.1-0.6)
Chloride 108 H mmol/L
(98-107)
Glucose 112 H mg/dl
(70-99)
Calcium 10.3 H mg/dl
(8.4-10.2)
08/08/25 15:18
08/08/25 15:18
Vital Signs
Initial and Last Documented VS:
Initial Vital Signs
Temp Pulse Resp BP Pulse Ox
36.6 C 70 18 108/73 99
08/08/25 15:09 08/08/25 15:09 08/08/25 15:09 08/08/25 15:09 08/08/25 15:09
Last Documented Vital Signs
Temp Pulse Resp BP Pulse Ox
37.1 C 78 18 116/70 98
08/08/25 18:40 08/08/25 19:50 08/08/25 19:50 08/08/25 19:50 08/08/25 19:50
Procedures
Cardioversion
Indication:: Afib
Performed by:: , Dr. Nguyen
Synchronized?: Yes
Energy Used: 200 joules
Number of attempts: 1
Successful?: Yes
ASA Risk Score: Class II
Any reaction or bad outcome to prior sedation/anesthesia?: No history of a reaction
Sedation level to be attained: moderate
Chart and allergies reviewed: Yes
Patient reassessed prior to sedation: Yes
Time out completed at (validating right patient & procedure): 18:35
History of difficult intubation: No
Airway free of obstruction: Yes
Patient has a gag reflex: Yes
Patient is able to open mouth: Yes
Patient has no dentures: Yes
Patient has no loose teeth: Yes
Medication administered by Provider during Moderate Sedation: IV Propofol (mg)
Total dose administered: 60
Time drug administered: 18:35
Start Time: 18:35
Stop Time: 18:46
*Pulse Oximetry
SaO2: 98
Oxygen Mode of Delivery: Room air
Patient hypoxic: no
*Critical Care Note
Total Time (30-74mins, 75-104mins- exclusive of procedures): Not Applicable
ED Attending Note
-
Portions of this chart may have been created with voice recognition software.� Occasional wrong word or��sound alike� substitutions may have occurred due to the inherent limitations of voice recognition software.
Discharge Plan
Departure
Patient Disposition: Home (Routine Discharge)
Date of Disposition: 08/08/25
Time of Disposition: 19:50
Patient with high blood pressure during this ER visit?: Yes
Discharge Problem:
Atrial fibrillation with RVR
Instructions: Atrial Fibrillation (DC), BLOOD PRESSURE
Prescriptions:
New
Eliquis 5 mg tablet
5 mg PO BID Qty: 60 0RF
No Action
cyanocobalamin (vitamin B-12) [Vitamin B-12] 1,000 mcg Tablet
1,000 mcg PO BID
atorvastatin 40 mg tablet
40 mg PO QPM
ticagrelor 90 mg Tablet
90 mg PO BID
aspirin [aspirin] 81 mg tablet,delayed release (DR/EC)
81 mg PO DAILY Qty: 1 0RF
Referrals:
Martinez Michael MD [Active, Cardiology]
Km Mulligan PA-C [Family Provider, Family Practice]
Activity Restrictions/Additional Instructions:
You were found to be in new onset rapid atrial fibrillation. In conjunction with Dr. Vicente, covering for Dr. Michael, we felt it be best to cardiovert you electrically tonight. This was performed successfully. Dr. Vicente recommends that
you be started on Eliquis and continue aspirin but hold/stop the Brilinta. Call Dr. Michael's office tomorrow. STOP TICAGRELOR / (BRILINTA).
Interventions
Interventions:
*Risk Screen - Suicide Last Done: 08/08/25 15:09
*General Assessment Last Done: 08/08/25 15:09
*Neglect/Abuse Screening Last Done: 08/08/25 15:09
*ED- Fall Risk Assessment Last Done: 08/08/25 16:47
ED- Cardiac Assessment Last Done: 08/08/25 16:47
ED- Pulmonary Assessment Last Done: 08/08/25 16:47
Discharge Date and Time
Print Language: CUBAN
[2025-08-08 18:11] LABS: Magnesium 2.2 mg/dl (1.6-2.3)
[2025-08-08] MEDS: ELIQUIS 5 MG PO (19:56)
== END 2025-08-08 20:26 | disposition home or self-care (01) ==
LOC: EMR 15:02
PROVIDERS: Emergency Medicine; EMERGENCY PHYSICIAN Emergency Medicine; FAMILY PHYSICIAN Physician Assistant Medical
DX: I48.91 Unspecified atrial fibrillation (principal); Z87.74 Personal history of (corrected) congenital malformations of heart and circulatory system; Z86.73 Personal history of transient ischemic attack (TIA), and cerebral infarction without residual deficits
CPT/HCPCS: 92960; 99152; 99285; 80053; 83735; 84443; 85025; 93005

== ENCOUNTER 2025-08-23 07:31 | Day surgery (SDC) | payer OTHER, SELFPAY ==
[2025-08-23 08:42] VITALS: BMI 25.4
--- NOTE | 2025-08-23 09:38 | ITS.CL.CARDI ---
[employer] - Cardioversion
Cardioversion
Procedure Report:
Procedure: Direct current electrical cardioversion
Pre-operative diagnosis: Persistent atrial flutter
Post-operative diagnosis: Persistent atrial flutter status post DC cardioversion to sinus rhythm
Anesthesia: MAC
Attending Physician: Armond Castro MD
Procedure Description: The patient was brought to the electrophysiology laboratory in the fasting state. Adherence to anticoagulation regimen was confirmed. Informed consent was obtained from the patient prior to the start of the procedure.
Electrodes were placed on the patient and connected to an external defibrillator. Monitoring of blood pressure, ECG tracings, and pulse oximetry was initiated. The pads were applied to the patient in the anterior and posterior positions. The patient
was sedated by the anesthesiologist. A 50 joule biphasic synchronized shock was delivered to the patient under MAC anesthesia. Sinus rhythm was successfully restored. The patient recovered uneventfully from MAC anesthesia. There were no immediate
post-procedure complications. The patient left the lab in good condition. The attending physician was present throughout the entire procedure.
Impression: Successful direct current cardioversion with voodoo of sinus rhythm after one 50 joule biphasic synchronized shock.
== END 2025-08-23 10:50 | disposition home or self-care (01) ==
LOC: CATH 07:31
PROVIDERS: ATTENDING PHYSICIAN Internal Medicine Cardiovascular Disease; FAMILY PHYSICIAN Physician Assistant Medical; OTHER PHYSICIAN Internal Medicine Cardiovascular Disease
DX: I48.92 Unspecified atrial flutter (principal); I45.4 Nonspecific intraventricular block; R00.1 Bradycardia, unspecified
CPT/HCPCS: 92960; 93005

== ENCOUNTER → 2025-08-25 12:42 | Outpatient (REF) | payer OTHER, SELFPAY ==
--- NOTE | 2025-08-25 13:40 | PTCARENOTE ---
bubble study done with Nuria, medical lab technologist. #20 rebeca placed left AC. INT d/c'd. pressure held. No bleeding noted.
== END ==
LOC: RCS 12:42
PROVIDERS: ATTENDING PHYSICIAN Internal Medicine Interventional Cardiology; FAMILY PHYSICIAN Physician Assistant Medical
DX: Z87.74 Personal history of (corrected) congenital malformations of heart and circulatory system (principal)
CPT/HCPCS: 93307

== ENCOUNTER → 2025-10-25 14:33 | Outpatient (REF) | payer OTHER, SELFPAY | LOC: HWRAD 14:33 | PROVIDERS: ATTENDING PHYSICIAN Physician Assistant Medical | DX: R22.1 Localized swelling, mass and lump, neck (principal) | CPT/HCPCS: 76536 ==

== ENCOUNTER → 2025-11-07 14:55 | Outpatient (REF) | payer OTHER, SELFPAY | LOC: DHSLP 14:55 | PROVIDERS: ATTENDING PHYSICIAN Internal Medicine Cardiovascular Disease; FAMILY PHYSICIAN Physician Assistant Medical | DX: G47.33 Obstructive sleep apnea (adult) (pediatric) (principal) | CPT/HCPCS: 95800 ==